=== PATIENT | female | born 1935 | race Caucasian/White ===

== ENCOUNTER 2017-10-05 18:54 | Emergency (ER) | payer MEDICARE, BC ==
[2017-10-05 19:13] VITALS: PULSE 79
[2017-10-05] MEDS ORDERED: DOCUSATE 283 MG/5 ML ENEMA RECTAL STA (20:19)
--- NOTE | 2017-10-05 20:19 | ED ---
Abdominal Pain HPI - General Chief Complaint: Abdominal Pain Stated Complaint: CONSTIPATION, ABDOMINAL PAIN Time Seen by Provider: 10/05/17 19:53 Source: patient, RN notes reviewed Mode of arrival: ambulatory Limitations: no limitations - History of Present Illness Initial Comments: This 81-year-old female presents with complaints of constipation today. She states normally has a regular bowel movement daily she drinks prune juice every day. She states today she was unable to have any bowel movement has some crampy lower abdominal pain. She denies any hematuria dysuria fevers chills nausea vomiting sweats or other symptoms. This has happened in the past. MD Complaint: abdominal pain, other - Related Data Home Medications Medication Instructions Recorded Confirmed Acyclovir [Zovirax] 400 mg PO BID 10/05/17 10/05/17 Atenolol [Tenormin] 50 mg PO DAILY 10/05/17 10/05/17 Levothyroxine Sodium [Synthroid] 100 mcg PO DAILY 10/05/17 10/05/17 Losartan Potassium [Cozaar] 100 mg PO DAILY 10/05/17 10/05/17 Omeprazole 40 mg PO DAILY 10/05/17 10/05/17 amLODIPine [Norvasc] 5 mg PO DAILY 10/05/17 10/05/17 Allergies Allergy/AdvReac Type Severity Reaction Status Date / Time Sulfa (Sulfonamide Allergy Anaphylaxis Verified 10/05/17 19:34 Antibiotics) aspirin AdvReac Chest Pain Verified 10/05/17 19:34 steroids AdvReac Unknown Uncoded 10/05/17 19:14 Review of Systems ROS Statement: Those systems with pertinent positive or pertinent negative responses have been documented in the HPI. ROS Other: All systems not noted in ROS Statement are negative. Past Medical History Past Medical History: Hypertension, Osteoarthritis (OA), Thyroid Disorder History of Any Multi-Drug Resistant Organisms: None Reported Past Surgical History: Cholecystectomy, Hernia Repair, Tonsillectomy Additional Past Surgical History / Comment(s): hemorroidectomy Past Psychological History: Anxiety Smoking Status: Never smoker Past Alcohol Use History: None Reported Past Drug Use History: None Reported General Exam - General Exam Comments Initial Comments: This is a well-developed well-nourished awake alert oriented 3 female Limitations: no limitations General appearance: alert, in no apparent distress Head exam: Present: atraumatic, normocephalic, normal inspection Eye exam: Present: normal appearance, PERRL, EOMI. Absent: scleral icterus, conjunctival injection, periorbital swelling ENT exam: Present: normal exam, mucous membranes moist Neck exam: Present: normal inspection. Absent: tenderness, meningismus, lymphadenopathy Respiratory exam: Present: normal lung sounds bilaterally. Absent: respiratory distress, wheezes, rales, rhonchi, stridor Cardiovascular Exam: Present: regular rate, normal rhythm, normal heart sounds. Absent: systolic murmur, diastolic murmur, rubs, gallop, clicks GI/Abdominal exam: Present: soft, normal bowel sounds, other (Obese abdomen). Absent: distended, tenderness, guarding, rebound, rigid, bruit, pulsatile mass, hernia Rectal exam: Present: deferred Extremities exam: Present: normal inspection, full ROM, normal capillary refill. Absent: tenderness, pedal edema, joint swelling, calf tenderness Back exam: Present: normal inspection Neurological exam: Present: alert, oriented X3, CN II-XII intact Psychiatric exam: Present: normal affect, normal mood Skin exam: Present: warm, dry, intact, normal color. Absent: rash Course Vital Signs 10/05/17 19:09 Temperature 97.8 F Pulse Rate 79 Respiratory 16 Rate Blood Pressure 146/82 O2 Sat by Pulse 96 Oximetry Medical Decision Making - Medical Decision Making The patient is getting some results with the Tech [employer]. After discussion with her she would like to go home she'll be given a bowel citrate of magnesium to take at home. She is a follow-up with her doctor and return when necessary - Radiology Data Radiology results: report reviewed (I did review the imaging and report or is some scattered air-fluid levels in the right lower quadrant consistent with gastroenteritis or ileus. Evidences stool present:.), image reviewed Disposition Clinical Impression: Constipation Disposition: HOME SELF-CARE Condition: Good Instructions: Constipation (ED), High Fiber Diet (ED) Is patient prescribed a controlled substance at d/c from ED?: No Referrals: Kashmir Law MD [Primary Care Provider] - 1-2 days
--- NOTE | 2017-10-05 20:31 | XR ---
EXAMINATION TYPE: XR abdomen 2V DATE OF EXAM: 10/05/2017 COMPARISON: None INDICATION: Pain TECHNIQUE: Single view abdomen upright view and supine view on 2 images. FINDINGS: Air-fluid levels are right lower quadrant. Some colonic bowel gas appears to be present. Mass effect is not identified Psoas margins are normal. No organomegaly is present. Scoliosis present with convexity to left. Vascular calcifications within the aorta. IMPRESSION: 1. Nonspecific abdomen. There are scattered air-fluid levels within the right lower quadrant which ar e nonspecific. Consider gastroenteritis and ileus. Follow-up can be performed as clinically indicated .
[2017-10-05] MEDS ORDERED: MAGNESIUM CITRATE 296 ML BOTTLE PO ONE (20:52)
[2017-10-05 21:28] VITALS: BP 142/67; RESP 18; TEMP 98.4
== END 2017-10-05 21:27 | disposition home or self-care (01) ==
LOC: EC 18:54
DX: K59.00 Constipation, unspecified (principal); I10 Essential (primary) hypertension; E07.9 Disorder of thyroid, unspecified; Z90.49 Acquired absence of other specified parts of digestive tract; Z98.890 Other specified postprocedural states; Z79.899 Other long term (current) drug therapy; Z88.2 Allergy status to sulfonamides; Z88.6 Allergy status to analgesic agent; Z88.8 Allergy status to other drugs, medicaments and biological substances
CPT/HCPCS: 74019; 99284

== ENCOUNTER → 2017-10-27 | Outpatient (CLI) | payer MEDICARE, BC ==
--- NOTE | 2017-10-27 19:18 | CT ---
EXAMINATION TYPE: CT abdomen pelvis wo con DATE OF EXAM: 10/27/2017 COMPARISON: NONE HISTORY: Diarrhea x [address] DLP: 907 mGycm Automated exposure control for dose reduction was used. TECHNIQUE: Helical acquisition of images was performed from the lung bases through the pelvis. FINDINGS: LOWER THORAX: Coronary calcifications. LIVER/GB: No significant abnormality is appreciated. PANCREAS: No significant abnormality is seen. SPLEEN: No significant abnormality is seen. ADRENALS: No significant abnormality is seen. KIDNEYS: No significant abnormality is seen. FREE AIR: No free air is visualized RETROPERITONEAL ADENOPATHY: None visualized REPRODUCTIVE ORGANS: No significant abnormality is seen URINARY BLADDER: Tiny gas bubbles are noted nondependently, presumably due to recent instrumentation . PELVIC ADENOPATHY: None visualized. OSSEOUS STRUCTURES: No significant abnormality is seen. BOWEL: Proximal 25% of the stomach is intrathoracic. The remainder of the stomach and duodenum and s mall bowel are unremarkable. The colon shows scattered diverticula but is otherwise unremarkable no b owel wall thickening or mesocolonic findings. IMPRESSION: NO ACUTE PROCESS, DISCUSSED.
== END | disposition home or self-care (01) ==
LOC: RADCTMAIN 18:29
PROVIDERS: ATTEND Internal Medicine
DX: R19.7 Diarrhea, unspecified (principal)
CPT/HCPCS: 74176

== ENCOUNTER → 2018-02-28 | Outpatient (CLI) | payer MEDICARE, BC ==
--- NOTE | 2018-02-28 10:49 | MM ---
Reason for exam: additional evaluation requested from prior study. Last mammogram was performed 3 years and 1 month ago. History: Patient is postmenopausal. Family history of breast cancer in mother at age 74 and breast cancer in sister at age 70. Lumpectomy. Radiation therapy. Took hormonal contraceptives for 2 years. Physical Findings: Nurse did not find any significant physical abnormalities on exam. MG 3D Diag Mammo W/Cad NINO Bilateral CC and MLO view(s) were taken. Prior study comparison: February 11, 2015, mammogram. There are scattered fibroglandular densities. Stable benign calcifications. Stable post operative changes left breast. No significant new findings when compared with previous films. These results were verbally communicated with the patient and result sheet given to the patient on 02/28/18. ASSESSMENT: Benign, BI-RAD 2 RECOMMENDATION: Follow-up diagnostic mammogram of both breasts in 1 year. Manage patient on a clinical basis.
== END | disposition home or self-care (01) ==
LOC: RADMAMWWP 09:50
PROVIDERS: ATTEND Internal Medicine
DX: Z08 Encounter for follow-up examination after completed treatment for malignant neoplasm (principal); Z85.3 Personal history of malignant neoplasm of breast
CPT/HCPCS: 77066; G0279; 77062

== ENCOUNTER 2018-04-04 13:42 | Emergency (ER) | payer MEDICARE, BC ==
--- NOTE | 2018-04-04 14:11 | ED ---
Chest Pain HPI - General Chief Complaint: Chest Pain Stated Complaint: chest pain Time Seen by Provider: 04/04/18 13:53 Source: patient, RN notes reviewed, old records reviewed Mode of arrival: wheelchair Limitations: no limitations - History of Present Illness Initial Comments: This is an 82-year-old female to the ER for evaluation. She presents today for evaluation regards to chest pain. Patient has left-sided chest pain and episodic for about a week. No change in symptoms currently. Patient is without chest pain currently. States pain is intermittent with no modifying factors. No recent travel history no sick contacts. No prior history of similar complaints no cardiac risk factors MD Complaint: chest pain -: week(s) Onset: during rest, during exertion, after eating Pain Location: left chest Pain Radiation: LUE Severity: mild Severity scale (1-10): 3 Quality: aching Consistency: intermittent, now resolved Improves With: nothing Worsens With: nothing Anginal Symptoms: dyspnea Other Symptoms: cough Treatments Prior to Arrival: none - Related Data Home Medications Medication Instructions Recorded Confirmed Acyclovir [Zovirax] 400 mg PO BID 10/05/17 04/04/18 Atenolol [Tenormin] 50 mg PO DAILY 10/05/17 04/04/18 Levothyroxine Sodium [Synthroid] 100 mcg PO DAILY 10/05/17 04/04/18 Losartan Potassium [Cozaar] 100 mg PO DAILY 10/05/17 04/04/18 Omeprazole 40 mg PO DAILY 10/05/17 04/04/18 amLODIPine [Norvasc] 5 mg PO DAILY 10/05/17 04/04/18 Doxycycline [Vibramycin] 100 mg PO BID 04/04/18 04/04/18 Allergies Allergy/AdvReac Type Severity Reaction Status Date / Time Sulfa (Sulfonamide Allergy Anaphylaxis Verified 04/04/18 14:33 Antibiotics) aspirin AdvReac Chest Pain Verified 04/04/18 14:33 steroids AdvReac Unknown Uncoded 04/04/18 13:49 Review of Systems ROS Statement: Those systems with pertinent positive or pertinent negative responses have been documented in the HPI. ROS Other: All systems not noted in ROS Statement are negative. EKG Findings - EKG Comments: EKG Findings:: EKG shows normal sinus rhythm rate of 80, PA 160, QRS 80, QTC 449 Past Medical History Past Medical History: Hypertension, Osteoarthritis (OA), Thyroid Disorder History of Any Multi-Drug Resistant Organisms: None Reported Past Surgical History: Cholecystectomy, Hernia Repair, Tonsillectomy Additional Past Surgical History / Comment(s): hemorroidectomy Past Psychological History: Anxiety Smoking Status: Never smoker Past Alcohol Use History: None Reported Past Drug Use History: None Reported General Exam Limitations: no limitations General appearance: alert, in no apparent distress Head exam: Present: atraumatic, normocephalic, normal inspection Eye exam: Present: normal appearance, PERRL, EOMI. Absent: scleral icterus, conjunctival injection, periorbital swelling ENT exam: Present: normal exam, mucous membranes moist Neck exam: Present: normal inspection. Absent: tenderness, meningismus, lymphadenopathy Respiratory exam: Present: normal lung sounds bilaterally. Absent: respiratory distress, wheezes, rales, rhonchi, stridor Cardiovascular Exam: Present: regular rate, normal rhythm, normal heart sounds. Absent: systolic murmur, diastolic murmur, rubs, gallop, clicks GI/Abdominal exam: Present: soft, normal bowel sounds. Absent: distended, tenderness, guarding, rebound, rigid Extremities exam: Present: normal inspection, full ROM, normal capillary refill. Absent: tenderness, pedal edema, joint swelling, calf tenderness Back exam: Present: normal inspection Neurological exam: Present: alert, oriented X3, CN II-XII intact Psychiatric exam: Present: normal affect, normal mood Skin exam: Present: warm, dry, intact, normal color. Absent: rash Course Vital Signs 04/04/18 04/04/18 04/04/18 13:46 14:30 15:00 Temperature 97.4 F L Pulse Rate 82 74 73 Respiratory 18 17 24 Rate Blood Pressure 158/75 150/70 128/60 O2 Sat by Pulse 99 99 97 Oximetry 04/04/18 16:56 Temperature 97.3 F L Pulse Rate 70 Respiratory 18 Rate Blood Pressure 133/69 O2 Sat by Pulse 98 Oximetry - Reevaluation(s) Reevaluation #1: Medical record is reviewed Patient's chest pain is negative Patient would like to be discharged home Reevaluation #2: Studies CTA chest is negative for acute disease Chest Pain MDM - MDM 82 female the ER for evaluation, patient does have positive chest pain, CT negative, patient would not like to stay in hospital for cardiac evaluation. Patient will be discharged home Disposition Clinical Impression: Chest pain Disposition: HOME SELF-CARE Condition: Good Instructions: Chest Pain (ED) Is patient prescribed a controlled substance at d/c from ED?: No Referrals: Kashmir Law MD [Primary Care Provider] - 1-2 days
[2018-04-04] MEDS ORDERED: SODIUM CHLORIDE 0.9% 1,000 ML IV STA ×2 (14:32)
[2018-04-04 14:59] LABS: Basophils % (A) 1 %; Eosinophils # (A) 0.3 k/uL (0-0.7); Eosinophils % (A) 8 %; HCT 40.5 % (34.0-46.0); HGB 13.8 gm/dL (11.4-16.0); Lymphocytes # (A) 0.7 k/uL (1.0-4.8); Lymphocytes % (A) 16 %; MCH 27.7 pg (25.0-35.0); MCV 81.6 fL (80.0-100.0); Mean Platelet Volume 7.1; Monocytes # (A) 0.3 k/uL (0-1.0); Monocytes % (A) 6 %; Neutrophils % (A) 67 %; Platelet Count 258 k/uL (150-450); RBC 4.97 m/uL (3.80-5.40); RDW 15.1 % (11.5-15.5); WBC 4.5 k/uL (3.8-10.6)
[2018-04-04 15:09] LABS: Partial Thromboplastin Time 23.2 sec (22.0-30.0)
[2018-04-04 15:11] LABS: Albumin 3.8 g/dL (3.5-5.0); Magnesium 1.9 mg/dL (1.6-2.3); Potassium 4.2 mmol/L (3.5-5.1); Total Bilirubin 0.4 mg/dL (0.2-1.3); Total Protein 6.6 g/dL (6.3-8.2)
[2018-04-04 15:22] LABS: Creatine Kinase 51 U/L (30-135)
[2018-04-04 15:35] LABS: Creatine Kinase MB 1.3 ng/mL (0.0-2.4); Troponin I <0.012 ng/mL (0.000-0.034)
--- NOTE | 2018-04-04 16:16 | CT ---
EXAMINATION TYPE: CT angio chest DATE OF EXAM: 04/04/2018 3:56 PM COMPARISON: HISTORY: Left sided Chst pain CT DLP: 291 mGycm Automated exposure control for dose reduction was used. CONTRAST: CTA scan of the thorax is performed with IV Contrast, patient injected with 80 mL of Isovue 370, pulm onary embolism protocol. . FINDINGS: LUNGS: The lungs are grossly clear, there is no concerning parenchymal mass or nodule identified. T here is no pleural effusion or pneumothorax seen. The tracheobronchial tree is patent. There is basi lar bronchiectasis. There is very mild interlobular septal thickening which can be associated with ch ronic interstitial lung disease. Subsegmental areas of consolidation are seen bilaterally most typica l of atelectasis. Tiny calcified nodule axial image 51 series 401 likely related to tiny granuloma. M easuring 3 mm. MEDIASTINUM: There is a density in the right hilum on axial image 61. This appears to be outside the course of the pulmonary artery on the coronal and sagittal image. There are no greater than 1 cm chapincito r or mediastinal lymph nodes. No pericardial effusion is seen. Heart is enlarged. OTHER: Scoliotic curvature of the spine. Moderate-sized hiatal hernia noted. Vertebral body hemangio ma noted. IMPRESSION: 1. No diagnostic evidence of pulmonary embolism 2. Moderate size hiatal hernia 3. Cardiomegaly
[2018-04-04 16:57] VITALS: BP 133/69; PULSE 70; RESP 18; TEMP 97.3
== END 2018-04-04 17:02 | disposition home or self-care (01) ==
LOC: EC 13:42
DX: R07.9 Chest pain, unspecified (principal); R06.00 Dyspnea, unspecified; R05 Cough; M79.622 Pain in left upper arm; I10 Essential (primary) hypertension; E07.9 Disorder of thyroid, unspecified; Z79.899 Other long term (current) drug therapy; Z88.2 Allergy status to sulfonamides; Z88.6 Allergy status to analgesic agent; Z88.8 Allergy status to other drugs, medicaments and biological substances
CPT/HCPCS: 99285; 36415; 93005; 83880; 80053; 82550; 82553; 83690; 83735; 84484; 85025; 85610; 85730; 71275; Q9967

== ENCOUNTER 2018-04-07 16:56 | Emergency (ER) | payer MEDICARE, BC ==
[2018-04-07] MEDS ORDERED: SODIUM CHLORIDE 0.9% 500 ML 500 ML IV STA (17:47)
[2018-04-07] MEDS ORDERED: ONDANSETRON 4 MG/2 ML VIAL IVP STA (18:08)
[2018-04-07 18:10] LABS: Basophils % (A) 1 %; Eosinophils # (A) 0.3 k/uL (0-0.7); Eosinophils % (A) 4 %; HCT 37.6 % (34.0-46.0); HGB 12.6 gm/dL (11.4-16.0); Lymphocytes % (A) 15 %; MCH 27.3 pg (25.0-35.0); MCHC 33.5 g/dL (31.0-37.0); MCV 81.6 fL (80.0-100.0); Monocytes # (A) 0.5 k/uL (0-1.0); Monocytes % (A) 7 %; Neutrophils # (A) 4.8 k/uL (1.3-7.7); Neutrophils % (A) 70 %; Platelet Count 251 k/uL (150-450); RBC 4.61 m/uL (3.80-5.40); RDW 14.9 % (11.5-15.5); WBC 6.9 k/uL (3.8-10.6)
--- NOTE | 2018-04-07 18:11 | ED ---
General Adult HPI - General Chief complaint: Abdominal Pain Stated complaint: nausea/abdominal pain Source: patient, RN notes reviewed, old records reviewed Mode of arrival: wheelchair Limitations: no limitations - History of Present Illness Initial comments: 82-year-old female patient presents to ED with approximately 14 hours of nausea. Patient has a past medical history of diverticulitis, hypertension. Patient was recently evaluated on 04/04 for chest pain, evaluation was negative. Patient does not have a known history of cardiovascular disease. Patient reports that she has a long history of diverticular disease, denies any surgery within her abdomen. Patient was recently put on antibiotics by her primary care physician approximately one week ago for flareup of her diverticular disease, patient is currently taking doxycycline. Patient states that she woke up at approximately 1 AM this morning with nausea, pressure in her epigastric region. Patient denies any pain in her abdomen. Patient denies any emesis. Patient denies diarrhea. Patient denies fever chills. Patient states that she is not having any chest pain, shortness of breath. Systemic: Pt denies fatigue, myalgia, fever/chills, rash. Pt denies weakness, night sweats, weight loss. Neuro: Pt denies headache, visual disturbances, syncope or pre-syncope. HEENT: Pt denies ocular discharge or irritation, otalgia, rhinorrhea, pharyngitis or notable lymphadenopathy. Cardiopulmonary: Pt denies chest pain, SOB, heart palpitations, dyspnea on exertion. Abdominal/GI: Pt denies abdominal pain, v/d. : Pt denies dysuria, burning w/ urination, frequency/urgency. Denies new onset urinary or bowel incontinence. MSK: Pt denies myalgia, loss of strength or function in extremities. Neuro: Pt denies new onset weakness, paresthesias. - Related Data Home Medications Medication Instructions Recorded Confirmed Acyclovir [Zovirax] 400 mg PO BID 10/05/17 04/07/18 Atenolol [Tenormin] 50 mg PO DAILY 10/05/17 04/07/18 Levothyroxine Sodium [Synthroid] 100 mcg PO DAILY 10/05/17 04/07/18 Losartan Potassium [Cozaar] 100 mg PO DAILY 10/05/17 04/07/18 Omeprazole 40 mg PO DAILY 10/05/17 04/07/18 amLODIPine [Norvasc] 5 mg PO DAILY 10/05/17 04/07/18 Doxycycline [Vibramycin] 100 mg PO BID 04/04/18 04/07/18 Previous Rx's Medication Instructions Recorded Ondansetron [Zofran] 4 mg PO Q12HR PRN #15 tab 04/07/18 Allergies Allergy/AdvReac Type Severity Reaction Status Date / Time Sulfa (Sulfonamide Allergy Anaphylaxis Verified 04/07/18 17:54 Antibiotics) aspirin AdvReac Chest Pain Verified 04/07/18 17:54 steroids AdvReac Unknown Uncoded 04/07/18 17:04 Review of Systems ROS Statement: Those systems with pertinent positive or pertinent negative responses have been documented in the HPI. ROS Other: All systems not noted in ROS Statement are negative. Past Medical History Past Medical History: Hypertension, Osteoarthritis (OA), Thyroid Disorder History of Any Multi-Drug Resistant Organisms: None Reported Past Surgical History: Cholecystectomy, Hernia Repair, Tonsillectomy Additional Past Surgical History / Comment(s): hemorroidectomy Past Psychological History: Anxiety Smoking Status: Never smoker Past Alcohol Use History: None Reported Past Drug Use History: None Reported General Exam - General Exam Comments Initial Comments: Constitutional: NAD, AOX3, Pt has pleasant affect. HEENT: NC/AT, trachea midline, neck supple, no lymphadenopathy. Posterior pharynx non erythematous, without exudates. External ears appear normal, without discharge. Mucous membranes moist. Eyes PERRLA, EOM intact. There is no scleral icterus. No pallor noted. Cardiopulmonary: RRR, no murmurs, rubs or gallops, no JVD noted. Lungs CTAB in anterior and posterior cuevas. No peripheral edema. Abdominal exam: Abdomen soft and non-distended. Abdomen non-tender to palpation in all 4 quadrants. Bowel sounds active in LLQ. No hepatosplenomegaly. No ecchymoses, cullens/healy bowden sign negative. Neuro: CN II-XII intact. No nuchal rigidity. MSK: No posterior calf tenderness bilaterally, homans sign negative bilaterally. Posterior tibialis and radial pulse +2 bilaterally. Limitations: no limitations Course Vital Signs 04/07/18 04/07/18 04/07/18 17:02 18:05 21:20 Temperature 98.2 F 97.8 F 97.4 F L Pulse Rate 72 67 87 Respiratory 16 16 18 Rate Blood Pressure 137/75 135/69 142/67 O2 Sat by Pulse 96 97 98 Oximetry Medical Decision Making - Medical Decision Making 82-year-old female patient presents to ED with approximately 14 hours of nausea. Patient has a past medical history of diverticulitis, hypertension. Patient was recently evaluated on 04/04 for chest pain, evaluation was negative. Patient does not have a known history of cardiovascular disease. Patient reports that she has a long history of diverticular disease, denies any surgery within her abdomen. Patient was recently put on antibiotics by her primary care physician approximately one week ago for flareup of her diverticular disease, patient is currently taking doxycycline. Patient states that she woke up at approximately 1 AM this morning with nausea, pressure in her epigastric region. Patient denies any pain in her abdomen. Patient denies any emesis. Patient denies diarrhea. Patient denies fever chills. Patient states that she is not having any chest pain, shortness of breath. Physical exam did not display acute pathology. CT abdomen and pelvis did not display acute process. This did not display acute process. CMP displayed mild hyponatremia, findings explained to patient, patient to f/u PCP in 1-2 days. CBC was not impressive. Patient improved with Zofran, IV fluids. Lactic acid was negative. Coagulation studies are non-impressive. Troponin was negative. EKG is not concerning for acute ischemia. UA was not impressive. Explained to patient that the nausea experiencing is likely secondary to the doxycycline she was taking. As CBC, chest x-ray, CT abdomen and pelvis suggestive of any acute infectious process, patient okayed to discontinue the doxycycline. Patient verbalized understanding. Patient given strict return precautions. Patient to return to ED if any new symptoms develop including chest pain, shortness breath , abdominal pain, vomiting, diarrhea, any other new symptoms. Case discussed with Dr. Mcdonough. - Lab Data Result diagrams: 04/07/18 17:45 04/07/18 17:45 Lab Results 04/07/18 04/07/18 04/07/18 Range/Units 17:45 17:45 17:45 WBC 6.9 (3.8-10.6) k/uL RBC 4.61 (3.80-5.40) m/uL Hgb 12.6 (11.4-16.0) gm/dL Hct 37.6 (34.0-46.0) % MCV 81.6 (80.0-100.0) fL MCH 27.3 (25.0-35.0) pg MCHC 33.5 (31.0-37.0) g/dL RDW 14.9 (11.5-15.5) % Plt Count 251 (150-450) k/uL Neutrophils % 70 % Lymphocytes % 15 % Monocytes % 7 % Eosinophils % 4 % Basophils % 1 % Neutrophils # 4.8 (1.3-7.7) k/uL Lymphocytes # 1.0 (1.0-4.8) k/uL Monocytes # 0.5 (0-1.0) k/uL Eosinophils # 0.3 (0-0.7) k/uL Basophils # 0.0 (0-0.2) k/uL PT (9.0-12.0) sec INR (<1.2) APTT (22.0-30.0) sec Sodium 129 L (137-145) mmol/L Potassium 4.2 (3.5-5.1) mmol/L Chloride 96 L (98-107) mmol/L Carbon Dioxide 21 L (22-30) mmol/L Anion Gap 12 mmol/L BUN 12 (7-17) mg/dL Creatinine 0.68 (0.52-1.04) mg/dL Est GFR (CKD-EPI)AfAm >90 (>60 ml/min/1.73 sqM) Est GFR (CKD-EPI)NonAf 81 (>60 ml/min/1.73 sqM) Glucose 116 H (74-99) mg/dL Plasma Lactic Acid Abbe 1.0 (0.7-2.0) mmol/L Calcium 8.8 (8.4-10.2) mg/dL Magnesium 2.1 (1.6-2.3) mg/dL Total Bilirubin 0.9 (0.2-1.3) mg/dL AST 20 (14-36) U/L ALT 14 (9-52) U/L Alkaline Phosphatase 76 (38-126) U/L Troponin I (0.000-0.034) ng/mL Total Protein 6.3 (6.3-8.2) g/dL Albumin 3.6 (3.5-5.0) g/dL Lipase 58 (23-300) U/L Urine Color Urine Appearance (Clear) Urine pH (5.0-8.0) Ur Specific [place] (1.001-1.035) Urine Protein (Negative) Urine Glucose (UA) (Negative) Urine Ketones (Negative) Urine Blood (Negative) Urine Nitrite (Negative) Urine Bilirubin (Negative) Urine Urobilinogen (<2.0) mg/dL Ur Leukocyte Esterase (Negative) Urine RBC (0-5) /hpf Urine WBC (0-5) /hpf Ur Squamous Epith Cells (0-4) /hpf Urine Bacteria (None) /hpf Urine Mucus (None) /hpf 04/07/18 04/07/18 04/07/18 Range/Units 17:45 17:45 18:40 WBC (3.8-10.6) k/uL RBC (3.80-5.40) m/uL Hgb (11.4-16.0) gm/dL Hct (34.0-46.0) % MCV (80.0-100.0) fL MCH (25.0-35.0) pg MCHC (31.0-37.0) g/dL RDW (11.5-15.5) % Plt Count (150-450) k/uL Neutrophils % % Lymphocytes % % Monocytes % % Eosinophils % % Basophils % % Neutrophils # (1.3-7.7) k/uL Lymphocytes # (1.0-4.8) k/uL Monocytes # (0-1.0) k/uL Eosinophils # (0-0.7) k/uL Basophils # (0-0.2) k/uL PT 10.0 (9.0-12.0) sec INR 0.9 (<1.2) APTT 24.4 (22.0-30.0) sec Sodium (137-145) mmol/L Potassium (3.5-5.1) mmol/L Chloride (98-107) mmol/L Carbon Dioxide (22-30) mmol/L Anion Gap mmol/L BUN (7-17) mg/dL Creatinine (0.52-1.04) mg/dL Est GFR (CKD-EPI)AfAm (>60 ml/min/1.73 sqM) Est GFR (CKD-EPI)NonAf (>60 ml/min/1.73 sqM) Glucose (74-99) mg/dL Plasma Lactic Acid Abbe (0.7-2.0) mmol/L Calcium (8.4-10.2) mg/dL Magnesium (1.6-2.3) mg/dL Total Bilirubin (0.2-1.3) mg/dL AST (14-36) U/L ALT (9-52) U/L Alkaline Phosphatase (38-126) U/L Troponin I <0.012 (0.000-0.034) ng/mL Total Protein (6.3-8.2) g/dL Albumin (3.5-5.0) g/dL Lipase (23-300) U/L Urine Color Yellow Urine Appearance Clear (Clear) Urine pH 7.5 (5.0-8.0) Ur Specific [place] 1.012 (1.001-1.035) Urine Protein Trace H (Negative) Urine Glucose (UA) Negative (Negative) Urine Ketones Trace H (Negative) Urine Blood Negative (Negative) Urine Nitrite Negative (Negative) Urine Bilirubin Negative (Negative) Urine Urobilinogen <2.0 (<2.0) mg/dL Ur Leukocyte Esterase Trace H (Negative) Urine RBC 1 (0-5) /hpf Urine WBC 5 (0-5) /hpf Ur Squamous Epith Cells 1 (0-4) /hpf Urine Bacteria Occasional H (None) /hpf Urine Mucus Few H (None) /hpf Disposition Clinical Impression: Nausea Disposition: HOME SELF-CARE Condition: Good Instructions: Acute Nausea and Vomiting (ED) Additional Instructions: Patient to adhere to previously discussed treatment plan and will take medication(s) as directed. Patient to follow up with PCP in 1-2 days. Patient to return to ED if symptoms do not improve. Prescriptions: Ondansetron [Zofran] 4 mg PO Q12HR PRN #15 tab PRN Reason: Nausea Is patient prescribed a controlled substance at d/c from ED?: No Referrals: Kashmir Law MD [Primary Care Provider] - 1-2 days Time of Disposition: 21:14
[2018-04-07 18:21] LABS: INR 0.9 (<1.2); Partial Thromboplastin Time 24.4 sec (22.0-30.0)
[2018-04-07 18:25] LABS: ALT 14 U/L (9-52); AST 20 U/L (14-36); Albumin 3.6 g/dL (3.5-5.0); Alkaline Phosphatase 76 U/L (38-126); Anion Gap 12 mmol/L; Blood Urea Nitrogen 12 mg/dL (7-17); Calcium 8.8 mg/dL (8.4-10.2); Carbon Dioxide 21 mmol/L (22-30); Chloride 96 mmol/L (98-107); Glucose 116 mg/dL (74-99); Lipase 58 U/L (23-300); Magnesium 2.1 mg/dL (1.6-2.3); Potassium 4.2 mmol/L (3.5-5.1); Sodium 129 mmol/L (137-145); Total Bilirubin 0.9 mg/dL (0.2-1.3); Total Protein 6.3 g/dL (6.3-8.2)
[2018-04-07 19:00] LABS: Appearance,Urine Clear (Clear); Bacteria,Urine Occasional /hpf; Bilirubin,Urine Negative (Negative); Blood,Urine Negative (Negative); Color,Urine Yellow; Glucose,Urine (UA) Negative (Negative); Ketones,Urine Trace (Negative); Leukocyte Esterase,Urine Trace (Negative); Mucus,Urine Few /hpf; Nitrite,Urine Negative (Negative); PH, Urine 7.5 (5.0-8.0); Protein,Urine Trace (Negative); RBC,Urine 1 /hpf (0-5); Specific Gravity,Urine 1.012 (1.001-1.035); Squamous Epithelial Cell,Urine 1 /hpf (0-4); Urobilinogen,Urine <2.0 mg/dL (<2.0)
--- NOTE | 2018-04-07 19:50 | CT ---
EXAMINATION TYPE: CT abdomen pelvis w con DATE OF EXAM: 04/07/2018 COMPARISON: 10/27/2017 HISTORY: Abdominal pain and nausea CT DLP: 797.8 mGycm Automated exposure control for dose reduction was used. TECHNIQUE: Helical acquisition of images was performed from the lung bases through the pelvis. CONTRAST: Performed without Oral Contrast and with IV Contrast, patient injected with 100 mL of Isovue 300. FINDINGS: LUNG BASES: No significant abnormality is appreciated. LIVER/GB: No significant abnormality is appreciated. PANCREAS: No significant abnormality is seen. SPLEEN: No significant abnormality is seen. ADRENALS: No significant abnormality is seen. KIDNEYS: No significant abnormality is seen. FREE AIR: No free air is visualized. RETROPERITONEAL ADENOPATHY: None visualized REPRODUCTIVE ORGANS: No significant abnormality is seen URINARY BLADDER: No significant abnormality is seen. PELVIC ADENOPATHY: None visualized. OSSEOUS STRUCTURES: No significant abnormality is seen. BOWEL: No significant abnormality is seen. Again, the proximal 25% of the stomach is intrathoracic i n position. OTHER: No acute vascular findings. IMPRESSION: NO ACUTE PROCESS.
--- NOTE | 2018-04-07 21:06 | XR ---
EXAMINATION: XR chest 2V DATE AND TIME: 04/07/2018 8:21 PM CLINICAL INDICATION: PHH; Pain TECHNIQUE: Departmental protocol COMPARISON: None FINDINGS: The lungs are clear. The pleural spaces are negative. The cardiac silhouette is mild moderately enlarged. The skeletal structures and soft tissues are negative for acute findings. IMPRESSION: NO ACUTE PROCESS.
[2018-04-07 21:46] VITALS: BP 142/67; PULSE 87; RESP 18; TEMP 97.4
== END 2018-04-07 21:46 | disposition home or self-care (01) ==
LOC: EC 16:56
DX: R11.0 Nausea (principal); I10 Essential (primary) hypertension; E07.9 Disorder of thyroid, unspecified; F41.9 Anxiety disorder, unspecified; Z79.899 Other long term (current) drug therapy; Z88.2 Allergy status to sulfonamides; Z88.6 Allergy status to analgesic agent; Z88.8 Allergy status to other drugs, medicaments and biological substances; Z90.49 Acquired absence of other specified parts of digestive tract
CPT/HCPCS: 36415; 93005; 80053; 83605; 83690; 83735; 84484; 85025; 85610; 85730; 81001; 71046; 74177; 99285; 96374; 96361 ×3; J2405; Q9967

== ENCOUNTER 2018-07-25 10:04 | Observation (INO) | payer MEDICARE, BC ==
[2018-07-25] MEDS ORDERED: NITROGLYCERIN OINT 1 INCH/GM PACKET TOPICAL STA (10:34)
[2018-07-25] MEDS ORDERED: SODIUM CHLORIDE 0.9% 1,000 ML IV STA (10:34)
--- NOTE | 2018-07-25 10:37 | ED ---
General Adult HPI - General Chief complaint: Chest Pain Stated complaint: shooting pain in chest Time Seen by Provider: 07/25/18 10:27 Source: patient, RN notes reviewed Mode of arrival: wheelchair Limitations: no limitations - History of Present Illness Initial comments: Patient is a pleasant 82-year-old female presenting to the emergency Department with complaints of chest discomfort. Onset of symptoms was yesterday, symptoms were worse this morning. Discomfort is intermittent. Discomfort is sharp. Discomfort starts under the left arm and radiates towards the left breast. Patient has associated nausea. No dyspnea. No diaphoresis. No history of similar symptoms previously. Currently patient is symptom-free. Symptoms have been intermittent and generally short lasting. - Related Data Home Medications Medication Instructions Recorded Confirmed Acyclovir [Zovirax] 400 mg PO BID 10/05/17 07/25/18 Atenolol [Tenormin] 50 mg PO DAILY 10/05/17 07/25/18 Levothyroxine Sodium [Synthroid] 100 mcg PO DAILY 10/05/17 07/25/18 Losartan Potassium [Cozaar] 100 mg PO DAILY 10/05/17 07/25/18 Omeprazole 40 mg PO DAILY@1200 10/05/17 07/25/18 amLODIPine [Norvasc] 5 mg PO DAILY 10/05/17 07/25/18 Allergies Allergy/AdvReac Type Severity Reaction Status Date / Time Sulfa (Sulfonamide Allergy Anaphylaxis Verified 07/25/18 10:53 Antibiotics) aspirin AdvReac Chest Pain Verified 07/25/18 10:53 steroids AdvReac Unknown Uncoded 07/25/18 10:17 Review of Systems ROS Statement: Those systems with pertinent positive or pertinent negative responses have been documented in the HPI. ROS Other: All systems not noted in ROS Statement are negative. Constitutional: Denies: fever Eyes: Denies: eye pain ENT: Denies: ear pain Respiratory: Denies: cough, dyspnea Cardiovascular: Reports: chest pain Endocrine: Denies: fatigue Gastrointestinal: Reports: nausea. Denies: abdominal pain Genitourinary: Denies: dysuria Musculoskeletal: Denies: back pain Skin: Denies: rash Neurological: Denies: weakness Past Medical History Past Medical History: Hypertension, Osteoarthritis (OA), Thyroid Disorder History of Any Multi-Drug Resistant Organisms: None Reported Past Surgical History: Cholecystectomy, Hernia Repair, Tonsillectomy Additional Past Surgical History / Comment(s): hemorroidectomy Past Psychological History: Anxiety Smoking Status: Never smoker Past Alcohol Use History: None Reported Past Drug Use History: None Reported General Exam Limitations: no limitations General appearance: alert, in no apparent distress Head exam: Present: atraumatic Eye exam: Present: normal appearance, PERRL ENT exam: Present: normal oropharynx Neck exam: Present: normal inspection Respiratory exam: Present: normal lung sounds bilaterally. Absent: chest wall tenderness Cardiovascular Exam: Present: regular rate, normal rhythm Expanded Peripheral pulses: 2+: Radial (R), Radial (L), Dorsalis Pedis (R), Dorsalis Pedis (L) GI/Abdominal exam: Present: soft. Absent: distended, tenderness, guarding, rebound, rigid, pulsatile mass Extremities exam: Present: normal inspection. Absent: pedal edema, calf tenderness Neurological exam: Present: alert Psychiatric exam: Present: normal affect, normal mood Skin exam: Present: normal color Course Vital Signs 07/25/18 07/25/18 10:14 12:05 Temperature 97.8 F 97.8 F Pulse Rate 65 87 Respiratory 18 18 Rate Blood Pressure 154/72 157/79 O2 Sat by Pulse 98 100 Oximetry EKG Findings - EKG Comments: EKG Findings:: Normal sinus rhythm at 70. DC 170. QRS 92. QT 426. QTc 460. Normal axis. Normal QRS. No acute ST change. Medical Decision Making - Medical Decision Making Patient reevaluated and resting comfortably in bed. Patient and family updated on results and plan. Case was discussed with Dr. Barnes, who will admit covering for Dr. Upton. - Lab Data Result diagrams: 07/25/18 10:57 07/25/18 10:57 Lab Results 07/25/18 07/25/18 07/25/18 Range/Units 10:57 10:57 10:57 WBC 4.4 (3.8-10.6) k/uL RBC 5.12 (3.80-5.40) m/uL Hgb 13.8 (11.4-16.0) gm/dL Hct 41.1 (34.0-46.0) % MCV 80.3 (80.0-100.0) fL MCH 26.9 (25.0-35.0) pg MCHC 33.5 (31.0-37.0) g/dL RDW 15.6 H (11.5-15.5) % Plt Count 290 (150-450) k/uL Neutrophils % 59 % Lymphocytes % 26 % Monocytes % 7 % Eosinophils % 5 % Basophils % 1 % Neutrophils # 2.6 (1.3-7.7) k/uL Lymphocytes # 1.1 (1.0-4.8) k/uL Monocytes # 0.3 (0-1.0) k/uL Eosinophils # 0.2 (0-0.7) k/uL Basophils # 0.0 (0-0.2) k/uL PT 10.0 (9.0-12.0) sec INR 0.9 (<1.2) APTT 23.3 (22.0-30.0) sec D-Dimer 0.71 H (<0.60) mg/L FEU Sodium 135 L (137-145) mmol/L Potassium 4.3 (3.5-5.1) mmol/L Chloride 102 (98-107) mmol/L Carbon Dioxide 25 (22-30) mmol/L Anion Gap 8 mmol/L BUN 12 (7-17) mg/dL Creatinine 0.73 (0.52-1.04) mg/dL Est GFR (CKD-EPI)AfAm 88 (>60 ml/min/1.73 sqM) Est GFR (CKD-EPI)NonAf 76 (>60 ml/min/1.73 sqM) Glucose 100 H (74-99) mg/dL Calcium 9.1 (8.4-10.2) mg/dL Magnesium 2.0 (1.6-2.3) mg/dL Total Bilirubin 0.6 (0.2-1.3) mg/dL AST 18 (14-36) U/L ALT 14 (9-52) U/L Alkaline Phosphatase 82 (38-126) U/L Troponin I (0.000-0.034) ng/mL Total Protein 6.6 (6.3-8.2) g/dL Albumin 3.9 (3.5-5.0) g/dL Amylase 45 (30-110) U/L Lipase 132 (23-300) U/L 07/25/18 Range/Units 10:57 WBC (3.8-10.6) k/uL RBC (3.80-5.40) m/uL Hgb (11.4-16.0) gm/dL Hct (34.0-46.0) % MCV (80.0-100.0) fL MCH (25.0-35.0) pg MCHC (31.0-37.0) g/dL RDW (11.5-15.5) % Plt Count (150-450) k/uL Neutrophils % % Lymphocytes % % Monocytes % % Eosinophils % % Basophils % % Neutrophils # (1.3-7.7) k/uL Lymphocytes # (1.0-4.8) k/uL Monocytes # (0-1.0) k/uL Eosinophils # (0-0.7) k/uL Basophils # (0-0.2) k/uL PT (9.0-12.0) sec INR (<1.2) APTT (22.0-30.0) sec D-Dimer (<0.60) mg/L FEU Sodium (137-145) mmol/L Potassium (3.5-5.1) mmol/L Chloride (98-107) mmol/L Carbon Dioxide (22-30) mmol/L Anion Gap mmol/L BUN (7-17) mg/dL Creatinine (0.52-1.04) mg/dL Est GFR (CKD-EPI)AfAm (>60 ml/min/1.73 sqM) Est GFR (CKD-EPI)NonAf (>60 ml/min/1.73 sqM) Glucose (74-99) mg/dL Calcium (8.4-10.2) mg/dL Magnesium (1.6-2.3) mg/dL Total Bilirubin (0.2-1.3) mg/dL AST (14-36) U/L ALT (9-52) U/L Alkaline Phosphatase (38-126) U/L Troponin I <0.012 (0.000-0.034) ng/mL Total Protein (6.3-8.2) g/dL Albumin (3.5-5.0) g/dL Amylase (30-110) U/L Lipase (23-300) U/L - Radiology Data Radiology results: image reviewed (Chest x-ray shows no acute process) Disposition Clinical Impression: Chest pain Disposition: ADMITTED IP TO THIS [facility] Referrals: Kashmir Law MD [Primary Care Provider] - 1-2 days Decision Time: 12:49
[2018-07-25 11:19] LABS: Basophils % (A) 1 %; Eosinophils # (A) 0.2 k/uL (0-0.7); Eosinophils % (A) 5 %; HCT 41.1 % (34.0-46.0); HGB 13.8 gm/dL (11.4-16.0); Lymphocytes # (A) 1.1 k/uL (1.0-4.8); Lymphocytes % (A) 26 %; MCH 26.9 pg (25.0-35.0); MCHC 33.5 g/dL (31.0-37.0); MCV 80.3 fL (80.0-100.0); Mean Platelet Volume 7.5; Monocytes # (A) 0.3 k/uL (0-1.0); Monocytes % (A) 7 %; Neutrophils # (A) 2.6 k/uL (1.3-7.7); Neutrophils % (A) 59 %; Platelet Count 290 k/uL (150-450); RBC 5.12 m/uL (3.80-5.40); RDW 15.6 % (11.5-15.5); WBC 4.4 k/uL (3.8-10.6)
--- NOTE | 2018-07-25 11:28 | XR ---
EXAMINATION TYPE: XR chest 2V DATE OF EXAM: 07/25/2018 COMPARISON: 04/07/2018 INDICATION: Chest pain TECHNIQUE: Frontal and lateral views of the chest are obtained. FINDINGS: The heart size is normal. The pulmonary vasculature is normal. The lungs are clear. IMPRESSION: 1. No acute pulmonary process.
[2018-07-25 11:36] LABS: Albumin 3.9 g/dL (3.5-5.0); Calcium 9.1 mg/dL (8.4-10.2); Potassium 4.3 mmol/L (3.5-5.1); Total Bilirubin 0.6 mg/dL (0.2-1.3); Total Protein 6.6 g/dL (6.3-8.2)
[2018-07-25 11:56] LABS: INR 0.9 (<1.2); Partial Thromboplastin Time 23.3 sec (22.0-30.0)
[2018-07-25 12:08] LABS: D-Dimer 0.71 mg/L FEU (<0.60)
[2018-07-25] MEDS ORDERED: NITROGLYCERIN SL TABS 0.4 MG TAB SUBLINGUAL PRN (12:50)
--- NOTE | 2018-07-25 14:27 | CT ---
EXAMINATION TYPE: CT angio chest DATE OF EXAM: 07/25/2018 2:16 PM COMPARISON: 04/04/2018 HISTORY: Left sided chest pain. CT DLP: 291.6 mGycm Automated exposure control for dose reduction was used. CONTRAST: CTA scan of the thorax is performed with IV Contrast, patient injected with 74 mL of Isovue 370, pulm onary embolism protocol. . FINDINGS: LUNGS: The lungs are grossly clear, there is no concerning parenchymal mass or nodule identified. The re is no pleural effusion or pneumothorax seen. The tracheobronchial tree is patent. There is basilar bronchiectasis. There is very mild interlobular septal thickening which can be associated with chron ic interstitial lung disease. Subsegmental areas of consolidation are seen bilaterally most typical o f atelectasis. Apical subpleural nodularity measuring less than 5 mm stable. Calcified nodule previou sly noted suggestive of granuloma stable. Subsegmental consolidation bilaterally most typical of atel ectasis. MEDIASTINUM: There is satisfactory enhancement of the pulmonary artery and its branches, there is no CT evidence for pulmonary embolism. There are no greater than 1 cm hilar or mediastinal lymph nodes. No pericardial effusion is seen. Atherosclerotic changes of the aorta and branch vasculature. Incl uding the splenic artery mild coronary artery calcification. Heart is enlarged. OTHER: Scoliotic curvature of the spine with multilevel degenerative changes. Moderate-sized hiatal hernia noted. Vertebral body hemangioma noted. Correlate for previous cholecystectomy. Hypertrophy of the adrenal glands likely in the basis of adrenal hyperplasia. IMPRESSION: 1. No diagnostic evidence of pulmonary embolism 2. Moderate size hiatal hernia 3. Cardiomegaly WITH MILD CORONARY ARTERY ATHEROSCLEROTIC CHANGES
[2018-07-25 15:21] VITALS: BMI 27.6
[2018-07-25] MEDS: NITROGLYCERIN OINT 1 INCH/GM PACKET TOPICAL SCH ×2 (17:06→23:56)
[2018-07-25] MEDS ORDERED: PANTOPRAZOLE 40 MG TABLET PO ONE (17:30)
[2018-07-25] MEDS: ACYCLOVIR 200 MG CAP PO SCH (20:52)
[2018-07-25] MEDS ORDERED: CLOPIDOGREL 75 MG TAB PO SCH (23:45)
--- NOTE | 2018-07-26 00:43 | HP ---
HISTORY AND PHYSICAL DATE OF SERVICE: 07/25/2018. PRESENTING COMPLAINT: Cough, chest pain. HISTORY OF PRESENTING COMPLAINT: This is a pleasant 82-year-old patient who follows with Dr. Kashmir Law. Chronic stable medical conditions include GERD, hypertension, osteoarthritis including the back, hypothyroid, hiatal hernia, anxiety. Did have breast cancer treated with radiation treatment. For 2 days patient has been having some left-sided chest pain off and on. Also, sometimes in the left armpit and sometimes this pain lasts for a few seconds. She describes it as an ache. No associated dizziness, short of breath, lightheadedness or perspiration. The patient is able to do her chores. Patient normally does use a cane to get about. The patient's last stress test was done about 2 years ago. She was admitted to rule out a cardiac cause because of her presentation. REVIEW OF SYSTEMS: CONSTITUTIONAL: None. HEENT: None. RESPIRATORY: None. CARDIOVASCULAR: As above. GASTROINTESTINAL: None. GENITOURINARY: None. MUSCULOSKELETAL: Arthritic pain in many joints including lower back. DERMATOLOGICAL, HEMATOLOGIC, LYMPHATIC: None. PSYCHIATRY: Anxiety. NEUROLOGICAL: None. PAST MEDICAL HISTORY: GERD, hypertension, osteoarthritis especially of lower back, hypothyroid, hiatal hernia, breast cancer due to radiation treatment, anxiety. PAST SURGICAL HISTORY: Cholecystectomy, hernia repair, tonsillectomy, hemorrhoidectomy. PSYCH HISTORY: History of anxiety. SOCIAL HISTORY: Does not smoke or drink alcohol. . Uses a cane. FAMILY HISTORY: Breast cancer. HOME MEDICATIONS: 1. Norvasc 5 mg p.o. daily. 2. Omeprazole 40 mg p.o. daily. 3. Cozaar 100 mg p.o. daily. 4. Synthroid 100 mcg p.o. daily. 5. Tenormin 50 mg p.o. daily. 6. Lovenox 100 mg p.o. b.i.d. ALLERGIES: SULFA, ASPIRIN, STEROIDS. PHYSICAL EXAMINATION: Vital signs on presentation, temperature 97.8, pulse 55, respiratory rate 18, blood pressure 150/72, pulse 98% on room air. GENERAL APPEARANCE: Average built, sitting up comfortable. EYES: Pupils equal. Conjunctivae normal. HEENT: External ears and nose normal. Oral cavity normal. NECK: JVD not raised. Mass not palpable. Respiratory effort normal. LUNGS: Clear. CARDIOVASCULAR: 1st and 2nd heart sounds normal. No edema. ABDOMEN: Soft, nontender. Liver and spleen not palpable. LYMPHATIC: No lymph nodes palpable in the neck or axillae. PSYCHIATRY: Alert and oriented x3. Mood and affect normal. NEUROLOGICAL: Pupils equal. Cranial nerves grossly intact. Power and sensation grossly intact. INVESTIGATIONS: Reviewed in the clinical context. White count 4.4, hemoglobin 13.8, platelets 290,000. Potassium 4.3. BUN and creatinine normal. Troponin x2 negative. EKG tracing personally reviewed by me shows normal sinus rhythm. Chest x-ray film personally reviewed by me shows normal sinus rhythm, some cardiomegaly. Chest CTA shows some scoliosis, multilevel DJD, moderate-sized hiatal hernia. ASSESSMENT: 1. Noncardiac sounding chest pain. The patient's cardiac risk factors include patient's age, hypertension. Stress test was negative 2 years ago. It could also be musculoskeletal, but need to rule out underlying cardiac cause given her age. 2. Gastroesophageal reflux disease. 3. Essential hypertension. 4. Primary osteoarthritis multiple joints. 5. Hypothyroid. 6. Hiatal hernia. 7. Anxiety not otherwise specified. 8. Moderate hiatal hernia. PLAN: Patient has nitroglycerin paste in place. The patient is allergic to aspirin and steroids. Will add Plavix. Cardiology was consulted. The patient will need a stress test. Care was discussed with the patient. Questions were answered. ALLAL / IJN: [id number] /
[2018-07-26 01:58] LABS: Cholesterol 264 mg/dL (<200); HDL Cholesterol 46 mg/dL (40-60); LDL Cholesterol,Calculated 172 mg/dL (0-99); Triglycerides 232 mg/dL (<150)
[2018-07-26] MEDS: NITROGLYCERIN OINT 1 INCH/GM PACKET TOPICAL SCH (05:51)
[2018-07-26] MEDS ORDERED: LEVOTHYROXINE 100 MCG TAB PO SCH (06:30)
[2018-07-26 08:20] VITALS: RESP 18
[2018-07-26] MEDS: ACYCLOVIR 200 MG CAP PO SCH (08:49)
[2018-07-26] MEDS ORDERED: amLODIPine 5 MG TAB PO SCH (09:00)
[2018-07-26] MEDS ORDERED: ATENOLOL 50 MG TAB PO SCH (09:00)
[2018-07-26] MEDS ORDERED: LOSARTAN 50 MG TAB PO SCH (09:00)
[2018-07-26] MEDS ORDERED: DOBUTamine DRIP for NUC MED 500 MG in DEXTROSE/WATER 1 250ML.BAG IV ONE (10:03)
--- NOTE | 2018-07-26 10:16 | P.CRDCN ---
History of Present Illness History of present illness: This is a pleasant 82-year-old female past medical history significant for hypertension, hypothyroidism, osteoarthritis, gastroesophageal reflux disease and prior history of breast cancer status post lumpectomy and radiation in 2008. She denies history of coronary artery disease, diabetes mellitus and states she has been told she has dyslipidemia in the past but is intolerant to simvastatin due to muscle aches. We have been asked to see her in consultation secondary to chest pain. She states intermittently since Wednesday she has been having a brief sharp pain in the left precordial region with radiation to the axillary region. This comes at rest and is not associated with any other symptoms. There is no radiation down the arm, into the back or neck/jaw. The sy mptoms are very brief when they comes but are intense. Yesterday she noticed this again while she was getting dressed and for this reason and because associated with activity she came to the hospital for further evaluation. She had no further symptoms of chest discomfort since arrival to the hospital. She is seen and examined resting comfortably in bed with her at the bedside. EKG reveals sinus mechanism with no acute ST or T wave abnormalities noted. Chest x-ray is negative for an acute cardiopulmonary process. CTA chest negative for pulmonary embolism with evidence of mild coronary calcifications. Laboratory data reviewed, cardiac enzymes negative 3, WBC 4.4, hemoglobin 13.8, platelets 290, d-dimer 0.71, sodium 135, potassium 4.3, creatinine 0.73, magnesium 2.0, LDL 172, HDL 46. Current cardiac medications include amlodipine 5 mg daily, losartan 100 mg daily and atenolol 50 mg daily. She states she underwent stress testing approximately 2 years ago [facility] and she states was negative. At the time of my exam: CONSTITUTIONAL: Denies fever. Denies chills. EYES: Denies blurred vision. Denies vision changes. Denies eye pain. EARS, NOSE, MOUTH & THROAT: Denies headache. Denies sore throat. Denies ear pain. CARDIOVASCULAR: Denies chest pain. Denies shortness of breath. Denies orthopnea. Denies PND. Denies palpitations. RESPIRATORY: Denies cough. GASTROINTESTINAL: Denies abdominal pain. Denies diarrhea. Denies constipation. Denies nausea. Denies vomiting. MUSCULOSKELETAL: Denies myalgias. INTEGUMENTARY: Denies pruitis. Denies rash. NEUROLOGIC: Denies numbness. Denies tingling. Denies weakness. PSYCHIATRIC: Denies anxiety. Denies depression. ENDOCRINE: Denies fatigue. Denies weight change. Denies polydipsia. Denies polyurina. GENITOURINARY: Denies burning, hematuria or urgency with micturation. HEMATOLOGIC: Denies history of anemia. Denies bleeding. Blood pressure 136/78 heart rate 60 afebrile maintaining oxygen saturation on room air GENERAL: This is a 82-year-old female in no apparent distress at the time of my examination. HEENT: Head is atraumatic, normocephalic. Pupils are equal, round. Sclerae anicteric. Conjunctivae are clear. Mucous membranes of the mouth are moist. Neck is supple. There is no jugular venous distention. No carotid bruit is heard. LUNGS: Clear to auscultation no wheezes, rales or rhonchi. No chest wall tenderness is noted on palpation or with deep breathing. HEART: Regular rate and rhythm without murmurs, rubs or gallops. S1 and S2 heard. ABDOMEN: Soft, nontender. Bowel sounds are heard. No organomegaly noted. EXTREMITIES: No evidence of peripheral edema and no calf tenderness noted. VASCULAR: Radial and dorsalis pedis pulses palpated, no evidence of clubbing. NEUROLOGIC: Patient is awake, alert and oriented x3. ASSESSMENT Chest pain, atypical for angina. An acute coronary event has been ruled out with no EKG evidence of ischemia and negative cardiac enzymes. Underlying CAD is likely due to the patient's age and risk factors however these symptoms are not suggestive of unstable angina. Hypertension Dyslipidemia Hypothyroidism PLAN An acute coronary event is ruled out. Obtain 2-D echocardiogram and Doppler study to assess cardiac structure and function. Perform dobutamine stress echocardiogram to assess for stress-induced cardiac ischemia. Recommend initiation of rosuvastatin 10 mg daily, patient is agreeable to attempt this medication. Prescription has been sent her pharmacy. Continue losartan, atenolol and amlodipine as previously ordered. If above diagnostic testing is normal she is stable to be discharged from a cardiac perspective. Follow up with Dr. Trinidad in 2 weeks. Thank you kindly for this consultation. Nurse Practitioner note has been reviewed, I agree with a documented findings and plan of care. Patient was seen and examined. Past Medical History Past Medical History: Cancer, Chest Pain / Angina, GERD/Reflux, Hypertension, Osteoarthritis (OA), Thyroid Disorder Additional Past Medical History / Comment(s): Breast cancer with lumpectomy and radiation 2008, hiatel hernia History of Any Multi-Drug Resistant Organisms: None Reported Past Surgical History: Cholecystectomy, Hernia Repair, Tonsillectomy Additional Past Surgical History / Comment(s): hemorroidectomy Past Anesthesia/Blood Transfusion Reactions: No Reported Reaction Past Psychological History: Anxiety Smoking Status: Never smoker Past Alcohol Use History: None Reported Past Drug Use History: None Reported - Past Family History Mother Family Medical History: Cancer Additional Family Medical History / Comment(s): Breast cancer Father Family Medical History: Cancer Additional Family Medical History / Comment(s): Lung and throat Medications and Allergies Home Medications Medication Instructions Recorded Confirmed Type Acyclovir [Zovirax] 400 mg PO BID 10/05/17 07/25/18 History Atenolol [Tenormin] 50 mg PO DAILY 10/05/17 07/25/18 History Levothyroxine Sodium [Synthroid] 100 mcg PO DAILY 10/05/17 07/25/18 History Losartan Potassium [Cozaar] 100 mg PO DAILY 10/05/17 07/25/18 History Omeprazole 40 mg PO DAILY@1200 10/05/17 07/25/18 History amLODIPine [Norvasc] 5 mg PO DAILY 10/05/17 07/25/18 History Allergies Allergy/AdvReac Type Severity Reaction Status Date / Time Sulfa (Sulfonamide Allergy Anaphylaxis Verified 07/25/18 10:53 Antibiotics) aspirin AdvReac Chest Pain Verified 07/25/18 10:53 steroids AdvReac Unknown Uncoded 07/25/18 10:17 Physical Exam Vitals: Vital Signs Temp Pulse Pulse Resp BP BP Pulse Ox 07/26/18 04:00 97.5 F L 66 16 136/79 97 07/26/18 03:13 16 07/26/18 00:00 16 07/25/18 23:34 97.9 F 60 16 120/71 99 07/25/18 20:00 97.3 F L 68 16 145/74 97 07/25/18 15:13 97.8 F 64 18 168/74 98 07/25/18 14:30 98.3 F 63 16 152/72 96 07/25/18 13:30 61 16 141/69 99 07/25/18 12:05 97.8 F 87 18 157/79 100 07/25/18 10:14 97.8 F 65 18 154/72 98 Intake and Output 07/25/18 07/26/18 07/26/18 22:59 06:59 14:59 Intake Total 240 Balance 240 Intake: Oral 240 Other: Voiding Method Toilet Toilet # Voids 1 1 Results 07/25/18 10:57 07/25/18 10:57 Cardiac Enzymes 07/25/18 07/25/18 07/25/18 Range/Units 10:57 10:57 17:45 AST 18 (14-36) U/L Troponin I <0.012 <0.012 (0.000-0.034) ng/mL 07/25/18 Range/Units 23:21 AST (14-36) U/L Troponin I <0.012 (0.000-0.034) ng/mL Coagulation 07/25/18 Range/Units 10:57 PT 10.0 (9.0-12.0) sec APTT 23.3 (22.0-30.0) sec Lipids 07/25/18 Range/Units 10:57 Triglycerides 232 H (<150) mg/dL Cholesterol 264 H (<200) mg/dL HDL Cholesterol 46 (40-60) mg/dL CBC 07/25/18 Range/Units 10:57 WBC 4.4 (3.8-10.6) k/uL RBC 5.12 (3.80-5.40) m/uL Hgb 13.8 (11.4-16.0) gm/dL Hct 41.1 (34.0-46.0) % Plt Count 290 (150-450) k/uL Comprehensive Metabolic Panel 07/25/18 Range/Units 10:57 Sodium 135 L (137-145) mmol/L Potassium 4.3 (3.5-5.1) mmol/L Chloride 102 (98-107) mmol/L Carbon Dioxide 25 (22-30) mmol/L BUN 12 (7-17) mg/dL Creatinine 0.73 (0.52-1.04) mg/dL Glucose 100 H (74-99) mg/dL Calcium 9.1 (8.4-10.2) mg/dL AST 18 (14-36) U/L ALT 14 (9-52) U/L Alkaline Phosphatase 82 (38-126) U/L Total Protein 6.6 (6.3-8.2) g/dL Albumin 3.9 (3.5-5.0) g/dL Current Medications Generic Name Dose Route Start Last Admin Trade Name Freq PRN Reason Stop Dose Admin Acyclovir 400 mg 07/25/18 21:00 07/25/18 20:52 Zovirax PO 400 mg BID CAMELIA Administration Amlodipine Besylate 5 mg 07/26/18 09:00 Norvasc PO DAILY CAMELIA Atenolol 50 mg 07/26/18 09:00 Tenormin PO DAILY [facility] Levothyroxine Sodium 100 mcg 07/26/18 06:30 07/26/18 06:01 Synthroid PO 100 mcg DAILY@0630 [facility] Administration Losartan Potassium 100 mg 07/26/18 09:00 Cozaar PO DAILY [facility] Nitroglycerin 0.4 mg 07/25/18 12:50 Nitrostat SUBLINGUAL Q5M PRN Chest Pain Pantoprazole Sodium 40 mg 07/26/18 12:00 Protonix PO DAILY@1200 [facility] Sodium Chloride 10 ml 07/25/18 21:00 07/25/18 20:52 Saline Flush IV 10 ml BID [facility] Administration Intake and Output 07/25/18 07/26/18 07/26/18 22:59 06:59 14:59 Intake Total 240 Balance 240 Intake: Oral 240 Other: Voiding Method Toilet Toilet # Voids 1 1 07/25/18 10:57 07/25/18 10:57
--- NOTE | 2018-07-26 11:33 | ECHOF ---
Referral Reason:cp MEASUREMENTS -------- HEIGHT: 154.9 cm WEIGHT: 65.8 kg BP: 136/79 RVIDd: 2.8 cm (< 3.3) IVSd: 1.3 cm (0.6 - 1.1) LVIDd: 4.2 cm (3.9 - 5.3) LVPWd: 1.2 cm (0.6 - 1.1) IVSs: 1.4 cm LVIDs: 2.9 cm LVPWs: 1.5 cm LA Diam: 3.2 cm (2.7 - 3.8) LAESV Index (A-L): 35.22 ml/m Ao Diam: 3.3 cm (2.0 - 3.7) AV Cusp: 2.1 cm (1.5 - 2.6) MV EXCURSION: 13.254 mm (> 18.000) MV EF SLOPE: 71 mm/s (70 - 150) EPSS: 0.2 cm MV E Luis: 1.05 m/s MV DecT: 169 ms MV A Luis: 1.11 m/s MV E/A Ratio: 0.94 RAP: 5.00 mmHg RVSP: 28.31 mmHg FINDINGS -------- Sinus rhythm. This was a technically adequate study. The left ventricular size is normal. There is mild concentric left ventricular hypertrophy. Overa ll left ventricular systolic function is normal with, an EF between 60 - 65 %. The right ventricle is normal in size. LA is moderately dilated 34-39 ml/m2 The right atrium is normal in size. There is mild aortic valve sclerosis. There is mild aortic regurgitation. The mitral valve leaflets are mildly thickened. Mild mitral regurgitation is present. Mild tricuspid regurgitation present. There is mild pulmonary hypertension. The right ventricular systolic pressure, as measured by Doppler, is 28.31mmHg. Trace/mild (physiologic) pulmonic regurgitation. The aortic root size is normal. Normal inferior vena cava with normal inspiratory collapse consistent with estimated right atrial pre ssure of 5 mmHg. There is no pericardial effusion. CONCLUSIONS -------- 1. Sinus rhythm. 2. This was a technically adequate study. 3. The left ventricular size is normal. 4. There is mild concentric left ventricular hypertrophy. 5. Overall left ventricular systolic function is normal with, an EF between 60 - 65 %. 6. The right ventricle is normal in size. 7. LA is moderately dilated 34-39 ml/m2 8. The right atrium is normal in size. 9. There is mild aortic valve sclerosis. 10. There is mild aortic regurgitation. 11. The mitral valve leaflets are mildly thickened. 12. Mild mitral regurgitation is present. 13. Mild tricuspid regurgitation present. 14. There is mild pulmonary hypertension. 15. The right ventricular systolic pressure, as measured by Doppler, is 28.31mmHg. 16. Trace/mild (physiologic) pulmonic regurgitation. 17. The aortic root size is normal. 18. Normal inferior vena cava with normal inspiratory collapse consistent with estimated right atrial pressure of 5 mmHg. 19. There is no pericardial effusion. PACK MASTER: Jessika Lim RDCS
[2018-07-26] MEDS ORDERED: PANTOPRAZOLE 40 MG TABLET PO SCH (12:00)
[2018-07-26 12:09] VITALS: BP 146/77; PULSE 72; TEMP 97.3
--- NOTE | 2018-07-27 01:41 | DS ---
DISCHARGE SUMMARY DATE OF ADMISSION: July 25, 2018 DATE OF DISCHARGE: July 26, 2018 FINAL DIAGNOSES: 1. Chest pain probably musculoskeletal. 2. Gastroesophageal reflux disease. 3. Essential hypertension. 4. Primary osteoarthritis multiple joints. 5. Hypothyroid. 6. Hiatal hernia. 7. Anxiety not otherwise specified. HOSPITAL COURSE: This patient presented with some chest pain rather atypical sounding. The patient did undergo a stress test by Cardiology and a 2-D echocardiogram. Nurse called me this afternoon that the stress was negative and patient cleared the patient to go home. The patient did have a chest CTA that was negative for PE. CONSULTATION: Dr. Jam Trinidad from Cardiology. PHYSICAL EXAMINATION: VITAL SIGNS: Temperature 97.3, pulse 72, respiratory 18, blood pressure 142/77, pulse ox 97% on room air. Lungs are clear. DISCHARGE MEDICATIONS: 1. Zovirax 400 mg p.o. b.i.d. 2. Tenormin 50 mg p.o. daily. 3. Synthroid 100 mcg a day. 4. Cozaar 100 mg a day. 5. Omeprazole 40 mg a day. 6. Norvasc 5 mg p.o. daily. 7. Crestor 10 mg p.o. q.h.s. Follow up with Dr. Jam Trinidad in 2 weeks, follow up with Dr. Kashmir Law in 3-[address] Law. RADHA / FRANCHESCA: [id number] /
--- NOTE | 2018-07-28 13:16 | ECHOS ---
STRESS ECHOCARDIOGRAM DOBUTAMINE STRESS ECHO INDICATIONS: Chest pain. MEDICATIONS: BASELINE HEART RATE: 69 BASELINE BLOOD PRESSURE: 150/77 MAXIMUM HEART RATE: 116 MAXIMUM BLOOD PRESSURE: 153/50 85% MPHR: 116 100% MPHR: 136 METS: MAXIMUM STAGE REACHED: TOTAL EXERCISE TIME: CLINICAL INFORMATION: Patient was given dobutamine infusion according to the standard protocol. Peak heart rate of 116 was achieved. Maximum blood pressure 153/50 mmHg was noted. Resting EKG shows normal sinus rhythm with normal UT interval and QRS duration and normal ST-T waves. During dobutamine infusion, minimal equivocal ST-segment changes were noted. Occasional PVCs were noted. The baseline echocardiographic images reveal normal left ventricular chamber size with normal left ventricular systolic function. At the peak dose of dobutamine infusion, normal increase in the wall thickness and contractility is noted. FINAL IMPRESSION: 1. This dobutamine stress echocardiographic study is negative for stress-induced ischemia. 2. Occasional PVCs are noted. MMODL / IJN: [id number] /
== END 2018-07-26 15:55 | disposition home or self-care (01) ==
LOC: EC 10:04 → 1SOBS 12:50
PROVIDERS: ADMIT Hospitalist; ATTEND Hospitalist
DX: R07.89 Other chest pain (principal); I11.9 Hypertensive heart disease without heart failure; I25.10 Atherosclerotic heart disease of native coronary artery without angina pectoris; F41.9 Anxiety disorder, unspecified; K44.9 Diaphragmatic hernia without obstruction or gangrene; K21.9 Gastro-esophageal reflux disease without esophagitis; E03.9 Hypothyroidism, unspecified; M15.9 Polyosteoarthritis, unspecified; M47.9 Spondylosis, unspecified; Z79.890 Hormone replacement therapy; Z79.899 Other long term (current) drug therapy; Z88.6 Allergy status to analgesic agent; Z88.2 Allergy status to sulfonamides; Z88.8 Allergy status to other drugs, medicaments and biological substances; Z90.49 Acquired absence of other specified parts of digestive tract; Z85.3 Personal history of malignant neoplasm of breast; Z92.3 Personal history of irradiation; Z80.3 Family history of malignant neoplasm of breast
CPT/HCPCS: 96360; 96361; 99285; 36415; 93005; 93306; 93351; 85379; 80061; 80053; 82150; 83690; 83735; 84484; 85025; 85610; 85730; 71046; 71275; G0378 ×2; J1250; Q9967

== ENCOUNTER → 2018-12-06 | Outpatient (CLI) | payer MEDICARE, BC ==
--- NOTE | 2018-12-06 10:16 | US ---
EXAMINATION TYPE: US abdomen limited DATE OF EXAM: 12/06/2018 COMPARISON: NONE CLINICAL HISTORY: R19.00 ABD Mass. TECHNIQUE/FINDINGS: Assess for hernia at location of: to right of umbilicus No evidence of hernia with this ultrasound. IMPRESSION: No sonographic evidence of ventral hernia with and without Valsalva. Real-time scanning was performed by the die set up worker utilizing Valsalva and additional dynamic maneuve rs to assess for hernia. Images of the contralateral side were also acquired for direct comparison.
== END | disposition home or self-care (01) ==
LOC: RADUSWWP 07:03
PROVIDERS: ATTEND Internal Medicine
DX: R19.00 Intra-abdominal and pelvic swelling, mass and lump, unspecified site (principal)
CPT/HCPCS: 76705

== ENCOUNTER → 2018-12-09 | Outpatient (CLI) | payer MEDICARE, BC ==
--- NOTE | 2018-12-09 09:14 | CT ---
EXAMINATION TYPE: CT abdomen pelvis w con DATE OF EXAM: 12/09/2018 HISTORY: abd mass CT DLP: 1023.3mGycm Automated Exposure Control for Dose Reduction was Utilized. CONTRAST: CT scan of the abdomen and pelvis is performed with IV Contrast, patient injected with 100 mL of Isov ue 300. COMPARISON: CT abdomen and pelvis April 07, 2018. Limited abdominal ultrasound 3 days ago. FINDINGS: LUNG BASES: No significant abnormality is appreciated. LIVER/GB: Cholecystectomy clips are seen. PANCREAS: No significant abnormality is seen. SPLEEN: No significant abnormality is seen. ADRENALS: No significant abnormality is seen. KIDNEYS: Symmetric cortical medullary uptake and excretion from both kidneys without hydronephrosis s een bilaterally. BOWEL: Moderate size hiatal hernia is present. Oral contrast reaches level of the proximal transverse colon. No suspicious small or large bowel dilatation. Mild prominence of fecal material in the trans verse colon. Suboptimal evaluation of distal bowel is noted. Suggestion of mild wall thickening in th e sigmoid colon. Prominent sigmoid colonic diverticulosis without surrounding fat stranding. Scattere d additional colonic diverticula. Normal contrast-filled appendix from cecum. UTERUS/ADNEXA: Anteverted uterus. LYMPH NODES: No greater than 1cm abdominal or pelvic lymph nodes are appreciated. OSSEOUS STRUCTURES: Moderate narrowing both hip joints. Marked levoconvex scoliosis centered at L3 le gaston. Loss of normal lumbar lordosis. Multilevel disc space narrowing most prominent right L2-L3 and L 3-L4 levels as well as left L5-S1 level with moderate to severe spurring and endplate sclerosis all r edemonstrated. OTHER: Moderate calcified plaque distal abdominal aorta extends into the iliac branch vessels. Anterior abdominal wall shows no suspicious hernia defect, concerning solid or cystic mass or abnorma l fluid collection with particular attention to area just right of umbilicus at area of recent patien t concern. IMPRESSION: 1. No suspicious mass or hernia defect anterior right abdominal wall. 2. No suspicious acute findings are evident. Colonic diverticulosis most prominent at sigmoid colon l evel. Persistent mild sigmoid colonic wall thickening, advise colonoscopy correlation if this has not been performed in the last 3-5 years.
== END | disposition home or self-care (01) ==
LOC: RADCTMAIN 06:28
PROVIDERS: ATTEND Internal Medicine
DX: K57.30 Diverticulosis of large intestine without perforation or abscess without bleeding (principal)
CPT/HCPCS: 82565; 84520; 74177; 36415; Q9967

== ENCOUNTER → 2019-03-04 | Outpatient (CLI) | payer MEDICARE, BC ==
--- NOTE | 2019-03-06 10:22 | MM ---
Reason for exam: screening (asymptomatic). Last mammogram was performed 1 year ago. History: Patient is postmenopausal. Family history of breast cancer in mother at age 74 and breast cancer in sister at age 70. Lumpectomy. Radiation therapy. Took hormonal contraceptives for 2 years. Physical Findings: A clinical breast exam by your physician is recommended on an annual basis and results should be correlated with mammographic findings. MG 3D Screening Mammo W/Cad Bilateral CC and MLO view(s) were taken. Prior study comparison: February 28, 2018, bilateral MG 3d diag mammo w/cad NINO. February 11, 2015, mammogram. The breast tissue is heterogeneously dense. This may lower the sensitivity of mammography. Benign appearing bilateral calcifications. No suspicious abnormality. Left biopsy marker noted. No significant changes when compared with prior studies. ASSESSMENT: Benign, BI-RAD 2 RECOMMENDATION: Routine screening mammogram of both breasts in 1 year.
== END | disposition home or self-care (01) ==
LOC: RADMAMWWP 11:08
PROVIDERS: ATTEND Internal Medicine
DX: Z12.31 Encounter for screening mammogram for malignant neoplasm of breast (principal)
CPT/HCPCS: 77063; 77067

== ENCOUNTER → 2020-04-11 | Outpatient (CLI) | payer MEDICARE, BC ==
--- NOTE | 2020-04-15 11:33 | MM ---
Reason for exam: screening (asymptomatic). Last mammogram was performed 1 year and 1 month ago. History: Patient is postmenopausal. Family history of breast cancer in mother at age 74 and breast cancer in sister at age 70. Lumpectomy. Radiation therapy. Took hormonal contraceptives for 2 years. Physical Findings: A clinical breast exam by your physician is recommended on an annual basis and results should be correlated with mammographic findings. MG 3D Screening Mammo W/Cad Bilateral CC and MLO view(s) were taken. Prior study comparison: March 04, 2019, bilateral MG 3d screening mammo w/cad. February 28, 2018, bilateral MG 3d diag mammo w/cad NINO. The breast tissue is heterogeneously dense. This may lower the sensitivity of mammography. Previous mammotome biopsy in the left breast. Small benign oil cyst calcifications. Right subareolar nodular asymmetry on the MLO view does not clearly persist on 3D. Precautionary 6 month follow up recommended. Otherwise, no significant new finding. ASSESSMENT: Probably benign, BI-RAD 3 RECOMMENDATION: Follow-up diagnostic mammogram of the right breast in 6 months.
== END | disposition home or self-care (01) ==
LOC: RADMAMWWP 13:07
PROVIDERS: ATTEND Internal Medicine
DX: Z12.31 Encounter for screening mammogram for malignant neoplasm of breast (principal)
CPT/HCPCS: 77063; 77067

== ENCOUNTER → 2020-10-01 | Outpatient (CLI) | payer MEDICARE, BC ==
--- NOTE | 2020-10-02 08:53 | MM ---
Reason for exam: follow-up at short interval from prior study. Last mammogram was performed 6 months ago. History: Patient is postmenopausal. Family history of breast cancer in mother at age 74 and breast cancer in sister at age 70. Lumpectomy of the left breast. Radiation therapy. Took hormonal contraceptives for 2 years. Physical Findings: Nurse did not find any significant physical abnormalities on exam. MG 3D Diag Mammo W/Cad RT CC and MLO view(s) were taken of the right breast. Prior study comparison: April 11, 2020, bilateral MG 3d screening mammo w/cad. March 04, 2019, bilateral MG 3d screening mammo w/cad. The breast tissue is heterogeneously dense. This may lower the sensitivity of mammography. Right subareolar superior 6mm nodules, most likely benign asymmetry. Right breast ultrasound. These results were verbally communicated with the patient and result sheet given to the patient on 10/01/20. ASSESSMENT: Incomplete: need additional imaging evaluation, BI-RAD 0 RECOMMENDATION: Ultrasound of the right breast.
--- NOTE | 2020-10-02 08:55 | USB ---
Reason for exam: additional evaluation requested from abnormal screening. History: Patient is postmenopausal. Family history of breast cancer in mother at age 74 and breast cancer in sister at age 70. Lumpectomy of the left breast. Radiation therapy. Took hormonal contraceptives for 2 years. US Breast Limited RT Right limited breast ultrasound including focal area of concern, retroareolar and axilla demonstrates no sonographic finding retroareolar/subareolar, most likely benign asymmetry. These results were verbally communicated with the patient and result sheet given to the patient on 10/01/20. ASSESSMENT: Benign, BI-RAD 2 RECOMMENDATION: Follow-up diagnostic mammogram of both breasts in 6 months.
== END | disposition home or self-care (01) ==
LOC: RADMAMWWP 12:36
PROVIDERS: ATTEND Internal Medicine
DX: N63.41 Unspecified lump in right breast, subareolar (principal); N64.89 Other specified disorders of breast
CPT/HCPCS: 77065; 76642; G0279; 77061

== ENCOUNTER 2020-11-08 15:51 | Emergency (ER) | payer MEDICARE, BC ==
[2020-11-08 16:05] VITALS: RESP 18
--- NOTE | 2020-11-08 16:12 | ED ---
General Adult HPI - General Chief complaint: Fall Stated complaint: Fall Time Seen by Provider: 11/08/20 15:53 Source: patient, family, EMS Mode of arrival: ambulatory Limitations: no limitations - History of Present Illness Initial comments: Dictation was produced using [employer] [place] dictation software. please excuse any grammatical, word or spelling errors. Chief Complaint: 84-year-old female presents after fall History of Present Illness: Today 84-year-old female she was walking around at home when she tripped and fell. States that she fell forward landing on her knee, face and head. Patient is not taking any coagulation medications. Denies any loss of consciousness. She complains of pain at the vertex of her head.. She also has a bruise on her right knee. The ROS documented in this emergency department record has been reviewed and confirmed by me. Those systems with pertinent positive or negative responses have been documented in the HPI. All other systems are other negative and/or noncontributory. PHYSICAL EXAM: General Impression: Alert and oriented x3, not in acute distress HEENT: Abrasion to the vertex, ecchymoses around the left maxilla, extra-ocular movements intact, pupils equal and reactive to light bilaterally, mucous membranes moist. Cardiovascular: Heart regular rate and rhythm Chest: Able to complete full sentences, no retractions, no tachypnea Abdomen: abdomen soft, non-tender, non-distended, no organomegaly Musculoskeletal: Pulses present and equal in all extremities, no peripheral edema, bruising over the right knee Motor: no focal deficits noted Neurological: CN II-XII grossly intact, no focal motor or sensory deficits noted Skin: Intact with no visualized rashes Psych: Normal affect and mood ED course: 84-year-old female presents after trip and fall. Vital Signs upon arrival are within acceptable limits. Computed tomography scan of the head and C-spine shows no acute processes. Facial CT is unremarkable. Knee x-rays negative for any acute processes. Patient observed in emergency department for approximately one hour and 30 minutes. Patient is reevaluated 5:30 PM on be stable medical condition. Patient be discharged. Clinical presentation consistent with head and knee contusion. EKG interpretation: Ventricular rate 71, normal sinus rhythm,. Interval and 70, QS 90, QTc 458. No MN prolongation, no QTC prolongation, no ST or T-wave changes noted. EKG compared to 07/25/2018 showing no changes. Overall, this EKG is unremarkable - Related Data Home Medications Medication Instructions Recorded Confirmed Acyclovir [Zovirax] 400 mg PO BID 10/05/17 11/08/20 Levothyroxine Sodium [Synthroid] 100 mcg PO DAILY 10/05/17 11/08/20 Losartan Potassium [Cozaar] 100 mg PO DAILY 10/05/17 11/08/20 Omeprazole 40 mg PO DAILY@1200 10/05/17 11/08/20 amLODIPine [Norvasc] 5 mg PO DAILY 10/05/17 11/08/20 atenoloL [Tenormin] 50 mg PO DAILY 10/05/17 11/08/20 ALPRAZolam [Xanax] 0.25 mg PO BID PRN 11/08/20 11/08/20 Cholecalciferol [Vitamin D3 (25 25 mcg PO DAILY 11/08/20 11/08/20 Mcg = 1000 Iu)] Lovastatin [Mevacor] 10 mg PO Q48H 11/08/20 11/08/20 Allergies Allergy/AdvReac Type Severity Reaction Status Date / Time Sulfa (Sulfonamide Allergy Anaphylaxis Verified 11/08/20 17:01 Antibiotics) aspirin AdvReac Chest Pain Verified 11/08/20 17:01 steroids AdvReac Unknown Uncoded 07/25/18 10:17 Review of Systems ROS Statement: Those systems with pertinent positive or pertinent negative responses have been documented in the HPI. ROS Other: All systems not noted in ROS Statement are negative. Past Medical History Past Medical History: Cancer, Chest Pain / Angina, GERD/Reflux, Hypertension, Osteoarthritis (OA), Thyroid Disorder Additional Past Medical History / Comment(s): Breast cancer with lumpectomy and radiation 2008, hiatel hernia History of Any Multi-Drug Resistant Organisms: None Reported Past Surgical History: Cholecystectomy, Hernia Repair, Tonsillectomy Additional Past Surgical History / Comment(s): hemorroidectomy Past Anesthesia/Blood Transfusion Reactions: No Reported Reaction Past Psychological History: Anxiety Smoking Status: Never smoker Past Alcohol Use History: None Reported Past Drug Use History: None Reported - Past Family History Mother Family Medical History: Cancer Additional Family Medical History / Comment(s): Breast cancer Father Family Medical History: Cancer Additional Family Medical History / Comment(s): Lung and throat General Exam Limitations: no limitations Course Vital Signs 11/08/20 16:00 Temperature 97.8 F Pulse Rate 73 Respiratory 18 Rate Blood Pressure 130/66 O2 Sat by Pulse 98 Oximetry Disposition Clinical Impression: Fall, Head contusion, Knee contusion Disposition: HOME SELF-CARE Condition: Good Instructions (If sedation given, give patient instructions): Fall Prevention for Older Adults (ED) Is patient prescribed a controlled substance at d/c from ED?: No Referrals: Essence Conroy MD [Primary Care Provider] - 1-2 days
--- NOTE | 2020-11-08 17:12 | XR ---
EXAMINATION TYPE: XR knee complete RT DATE OF EXAM: 11/08/2020 COMPARISON: NONE HISTORY: Pain. Fall. TECHNIQUE: 3 views FINDINGS: There is spurring on the patella. I see no fracture nor dislocation. There is no evidence o f joint effusion. IMPRESSION: Mild patellar spurring. No fracture.
--- NOTE | 2020-11-08 17:18 | CT ---
EXAMINATION TYPE: CT brain raghu wo con DATE OF EXAM: 11/08/2020 COMPARISON: None HISTORY: Fall with left sided and superior head injury. Left eye swelling. CT DLP: 1000 mGycm Automated exposure control for dose reduction was used. There is cerebral cortical atrophy. There is no mass effect nor midline shift. There is no sign of in tracranial hemorrhage. The calvarium is intact. Skull base is intact. There is normal aeration of the mastoid sinuses. IMPRESSION: Mild atrophy. No acute intracranial abnormality.
--- NOTE | 2020-11-08 17:22 | CT ---
EXAMINATION TYPE: CT facial bones wo con DATE OF EXAM: 11/08/2020 COMPARISON: None HISTORY: CT DLP: 1000 mGycm Automated exposure control for dose reduction was used. Images obtained from the bottom of the mandible to the top of the frontal sinuses without contrast. The mandibular ring is intact. Temporomandibular joints are intact. Zygomatic arches appear normal. T he maxilla is intact. There is slight depression of the floor of the left bony orbit posteriorly cons istent with a minimal blowout fracture. The depression is 3 mm.. There is soft tissue swelling anterior to the left maxilla and zygoma. There is preseptal mild left p eriorbital soft tissue swelling. The nasal bone appears intact. There is fairly normal aeration of th e paranasal sinuses. IMPRESSION: Left side maxillary soft tissue swelling and periorbital swelling. There is a minimal blowout fractur e of the floor of the left bony orbit measuring 3 mm depression.
[2020-11-08 18:02] VITALS: BP 142/70; PULSE 72; TEMP 97.9
== END 2020-11-08 18:01 | disposition home or self-care (01) ==
LOC: EC 15:51
DX: S00.93XA Contusion of unspecified part of head, initial encounter (principal); S80.01XA Contusion of right knee, initial encounter; M19.90 Unspecified osteoarthritis, unspecified site; K21.9 Gastro-esophageal reflux disease without esophagitis; F32.9 Major depressive disorder, single episode, unspecified; I10 Essential (primary) hypertension; Z85.3 Personal history of malignant neoplasm of breast; Y93.01 Activity, walking, marching and hiking; W01.0XXA Fall on same level from slipping, tripping and stumbling without subsequent striking against object, initial encounter; Y92.009 Unspecified place in unspecified non-institutional (private) residence as the place of occurrence of the external cause; E07.9 Disorder of thyroid, unspecified
CPT/HCPCS: 70450; 70486; 72125; 93005; 99284

== ENCOUNTER → 2021-04-14 | Outpatient (CLI) | payer MEDICARE, BC ==
--- NOTE | 2021-04-14 14:40 | MM ---
Reason for exam: follow-up at short interval from prior study. Last mammogram was performed 6 months ago. History: Patient is postmenopausal. Family history of breast cancer in mother at age 74 and breast cancer in sister at age 70. Lumpectomy of the left breast. Radiation therapy. Took hormonal contraceptives for 2 years. Physical Findings: Nurse did not find any significant physical abnormalities on exam. MG 3D Diag Mammo W/Cad NINO Bilateral CC and MLO view(s) were taken. Prior study comparison: October 01, 2020, right breast MG 3d diag mammo w/cad RT. April 11, 2020, bilateral MG 3d screening mammo w/cad. Previous mammotome biopsy in the left breast. No significant new findings when compared with previous films. These results were verbally communicated with the patient and result sheet given to the patient on 04/14/21. ASSESSMENT: Benign, BI-RAD 2 RECOMMENDATION: Routine screening mammogram of both breasts in 1 year.
== END | disposition home or self-care (01) ==
LOC: RADMAMWWP 13:23
PROVIDERS: ATTEND Family Medicine
DX: R92.8 Other abnormal and inconclusive findings on diagnostic imaging of breast (principal); Z80.3 Family history of malignant neoplasm of breast; Z78.0 Asymptomatic menopausal state
CPT/HCPCS: 77066; G0279; 77062

== ENCOUNTER → 2022-04-16 | Outpatient (CLI) | payer MEDICARE, BC ==
--- NOTE | 2022-04-17 13:24 | MM ---
Reason for Exam: Screening (asymptomatic). Last screening mammogram was performed 12 month(s) ago. Patient History: Menarche at age 10. First Full-Term at age 17. Postmenopausal. Breast cancer, left, under age 48. Previous chest radiation therapy. Patient used Hormonal Contraceptives for 2 years. Lumpectomy on the Left side. Radiation Therapy. Sister had breast cancer, age 70. Mother had breast cancer, age 74. Prior Study Comparison: 04/11/2020 Bilateral Screening Mammogram, [facility]. 10/01/2020 Right Diagnostic Mammogram, [facility]. 04/14/2021 Bilateral Diagnostic Mammogram, [facility]. Tissue Density: The breast tissue is heterogeneously dense. This may lower the sensitivity of mammography. Findings: Analyzed By CAD. Pattern appears symmetrical and stable. Benign vascular and coarse calcifications are present. No significant interval change. Core marker is within the left breast. No suspicious groups of microcalcifications, spiculated or lobular masses, architectural distortion or other secondary signs of malignancy are mammographically apparent. Overall Assessment: Benign, BI-RAD 2 Management: Screening Mammogram of both breasts in 1 year. A negative mammogram report should not preclude additional follow up of suspicious palpable abnormalities. Patient should continue monthly self breast exam. A clinical breast exam by your physician is recommended on an annual basis and results should be correlated with mammographic findings. Electronically signed and approved by: Wilner Paniagua D.O. Radiologis
== END | disposition home or self-care (01) ==
LOC: RADMAMWWP 14:48
PROVIDERS: ATTEND Family Medicine
DX: Z12.31 Encounter for screening mammogram for malignant neoplasm of breast (principal); Z85.3 Personal history of malignant neoplasm of breast; Z78.0 Asymptomatic menopausal state; Z80.3 Family history of malignant neoplasm of breast
CPT/HCPCS: 77063; 77067

== ENCOUNTER 2022-06-01 11:01 | Emergency (ER) | payer MEDICARE, BC ==
--- NOTE | 2022-06-01 13:03 | ED ---
General Adult HPI - General Chief complaint: Recheck/Abnormal Lab/Rx Stated complaint: Thinks she took too many meds Time Seen by Provider: 06/01/22 11:21 Source: patient Mode of arrival: ambulatory Limitations: no limitations - History of Present Illness Initial comments: Patient is an 86 year-old female who presents to the emergency department with concern that she took her daily blood pressure medications twice instead of once today. Patient takes atenolol 50 mg and losartan 100 mg daily. She typically takes them around 6:30 AM. At 8:30 AM today patient was not sure if she had had her daily doses yet therefore took both atenolol and losartan again. Patient does not check her blood pressure at home. She is asymptomatic-no chest pain, shortness of breath, lightheadedness, dizziness, nausea, vomiting. - Related Data Home Medications Medication Instructions Recorded Confirmed Acyclovir [Zovirax] 400 mg PO BID 10/05/17 11/08/20 Levothyroxine Sodium [Synthroid] 100 mcg PO DAILY 10/05/17 11/08/20 Losartan Potassium [Cozaar] 100 mg PO DAILY 10/05/17 11/08/20 Omeprazole 40 mg PO DAILY@1200 10/05/17 11/08/20 amLODIPine [Norvasc] 5 mg PO DAILY 10/05/17 11/08/20 atenoloL [Tenormin] 50 mg PO DAILY 10/05/17 11/08/20 ALPRAZolam [Xanax] 0.25 mg PO BID PRN 11/08/20 11/08/20 Cholecalciferol [Vitamin D3 (25 25 mcg PO DAILY 11/08/20 11/08/20 Mcg = 1000 Iu)] Lovastatin [Mevacor] 10 mg PO Q48H 11/08/20 11/08/20 Allergies Allergy/AdvReac Type Severity Reaction Status Date / Time Sulfa (Sulfonamide Allergy Anaphylaxis Verified 11/08/20 17:01 Antibiotics) aspirin AdvReac Chest Pain Verified 11/08/20 17:01 steroids AdvReac Unknown Uncoded 07/25/18 10:17 Review of Systems ROS Statement: Those systems with pertinent positive or pertinent negative responses have been documented in the HPI. ROS Other: All systems not noted in ROS Statement are negative. Past Medical History Past Medical History: Cancer, Chest Pain / Angina, GERD/Reflux, Hypertension, Osteoarthritis (OA), Thyroid Disorder Additional Past Medical History / Comment(s): Breast cancer with lumpectomy and radiation 2008, hiatel hernia History of Any Multi-Drug Resistant Organisms: None Reported Past Surgical History: Cholecystectomy, Hernia Repair, Tonsillectomy Additional Past Surgical History / Comment(s): hemorroidectomy Past Anesthesia/Blood Transfusion Reactions: No Reported Reaction Past Psychological History: Anxiety Smoking Status: Never smoker Past Alcohol Use History: None Reported Past Drug Use History: None Reported - Past Family History Mother Family Medical History: Cancer Additional Family Medical History / Comment(s): Breast cancer Father Family Medical History: Cancer Additional Family Medical History / Comment(s): Lung and throat General Exam Limitations: no limitations General appearance: alert, in no apparent distress Head exam: Present: atraumatic, normocephalic, normal inspection Respiratory exam: Present: normal lung sounds bilaterally. Absent: respiratory distress, wheezes, rales, rhonchi, stridor Cardiovascular Exam: Present: regular rate, normal rhythm, normal heart sounds. Absent: systolic murmur, diastolic murmur, rubs, gallop, clicks Neurological exam: Present: alert, oriented X3, CN II-XII intact Psychiatric exam: Present: normal affect, normal mood Skin exam: Present: warm, dry, intact, normal color. 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 sent in by a medical professional or institution (, PA, EX ASSISTANT/PROGRAM DIRECTOR, urgent care, hospital, or fpc...) When possible be specific @ -No Did you speak to anyone other than the patient for history (EMS, parent, family, police, friend...)? What history was obtained from this source @ -No Did you review nursing and triage notes (agree or disagree)? Why? @ -I reviewed and agree with nursing and triage notes Were old charts reviewed (outside hosp., previous admission, EMS record, old EKG, old radiological studies, urgent care reports/EKG's, fpc records)? Report findings @ -No old charts were reviewed Differential Diagnosis (chest pain, altered mental status, abdominal pain women, abdominal pain men, vaginal bleeding, weakness, fever, dyspnea, syncope, headache, dizziness, GI bleed, back pain, seizure, CVA, palpatations, mental health)? @ -not applicable EKG interpreted by me (3pts min.). @ -As above X-rays interpreted by me (1pt min.). @ -None done CT interpreted by me (1pt min.). @ -None done U/S interpreted by me (1pt. min.). @ -None done What testing was considered but not performed or refused? (CT, X-rays, U/S, labs)? Why? @ -None What meds were considered but not given or refused? Why? @ -None Did you discuss the management of the patient with other professionals (professionals i.e. , PA, EX ASSISTANT/PROGRAM DIRECTOR, lab, RT, psych nurse, social services assistant, grid molder, teacher, corporate security officer, therapeutic case manager)? Give summary @ -No Was smoking cessation discussed for >3mins.? @ -No Was critical care preformed (if so, how long)? @ -No Were there social determinants of health that impacted care today? How? (Homelessness, low income, unemployed, alcoholism, drug addiction, transportation, low edu. Level, literacy, decrease access to med. care, senior care, rehab)? @ -No Was there de-escalation of care discussed even if they declined (Discuss DNR or withdrawal of care, Hospice)? DNR status @ -No What co-morbidities impacted this encounter? (DM, HTN, Smoking, COPD, CAD, Cancer, CVA, ARF, Chemo, Hep., AIDS, mental health diagnosis, sleep apnea, morbid obesity)? @ -None Was patient admitted / discharged? Hospital course, mention meds given and route, prescriptions, significant lab abnormalities, going to OR and other pertinent info. @ -Discharge. Orthostatics negative. Patient observed closely in the emergency department and her blood pressure actually remained high. She remained asymptomatic. Patient is to follow-up with primary care provider for further evaluation and management of her blood pressure. Undiagnosed new problem with uncertain prognosis? @ -No Drug Therapy requiring intensive monitoring for toxicity (Heparin, Nitro, Insulin, Cardizem)? @ -No Were any procedures done? @ -No Diagnosis/symptom? @ -Medication overdose Acute, or Chronic, or Acute on Chronic? @ -Acute Uncomplicated (without systemic symptoms) or Complicated (systemic symptoms)? @ -Uncomplicated Side effects of treatment? @ -No Exacerbation, Progression, or Severe Exacerbation? @ -No Poses a threat to life or bodily function? How? (Chest pain, [place], [place], pneumonia, PE, COPD, DKA, ARF, appy, cholecystitis, CVA, Diverticulitis, Homicidal, Suicidal, threat to staff... and all critical care pts) @ -No Dr. Bolanos is my attending Disposition Clinical Impression: Medication overdose Disposition: HOME SELF-CARE Condition: Good Instructions (If sedation given, give patient instructions): Hypotension (ED) Additional Instructions: Continue to monitor blood pressure home. Increase water intake. Follow-up with primary care provider in one to 2 days. Return to the emergency department if you experience new, concerning, or worsening symptoms. Is patient prescribed a controlled substance at d/c from ED?: No Referrals: Jose F Navarro MD [Primary Care Provider] - 1-2 days
[2022-06-01 13:10] VITALS: RESP 18
[2022-06-01 13:14] VITALS: BP 168/78; PULSE 68; TEMP 98
== END 2022-06-01 13:14 | disposition home or self-care (01) ==
LOC: EC 11:01
DX: T44.7X1A Poisoning by beta-adrenoreceptor antagonists, accidental (unintentional), initial encounter (principal); T46.5X1A Poisoning by other antihypertensive drugs, accidental (unintentional), initial encounter; I10 Essential (primary) hypertension; K21.9 Gastro-esophageal reflux disease without esophagitis; E07.9 Disorder of thyroid, unspecified; Z88.2 Allergy status to sulfonamides; Z88.8 Allergy status to other drugs, medicaments and biological substances; Z88.6 Allergy status to analgesic agent; Z79.899 Other long term (current) drug therapy; Z79.890 Hormone replacement therapy; Z85.3 Personal history of malignant neoplasm of breast; Z90.49 Acquired absence of other specified parts of digestive tract
CPT/HCPCS: 99283

== ENCOUNTER → 2022-09-29 | Outpatient (CLI) | payer MEDICARE, BC ==
--- NOTE | 2022-09-29 17:09 | US ---
EXAMINATION TYPE: US venous doppler duplex LE BI DATE OF EXAM: 09/29/2022 4:24 PM COMPARISON: NONE CLINICAL INDICATION: Female, 86 years old with history of R79.1 ABNORMAL COAGULATION P R60.0 LOCALIZE D EDEMA; d-dimer 0.7, chronic swelling and pain in left ankle for 3 years SIDE PERFORMED: Bilateral TECHNIQUE: The lower extremity deep venous system is examined utilizing real time linear array sonog larry with graded compression, doppler sonography and color-flow sonography. VESSELS IMAGED: Common Femoral Vein Deep Femoral Vein Greater Saphenous Vein * Femoral Vein Popliteal Vein Small Saphenous Vein * Proximal Calf Veins (* superficial vessels) Right Leg: Negative for DVT 5.0cm popiteal cyst seen Left Leg: Negative for DVT *negative findings given to office IMPRESSION: 1. Bilateral lower extremity ultrasound negative for deep venous thrombosis. 2. Right popliteal cyst
== END | disposition home or self-care (01) ==
LOC: RADUSWWP 15:40
PROVIDERS: ATTEND Family Medicine
DX: M71.21 Synovial cyst of popliteal space [Baker], right knee (principal); M71.22 Synovial cyst of popliteal space [Baker], left knee; R79.1 Abnormal coagulation profile; R60.0 Localized edema
CPT/HCPCS: 93970

== ENCOUNTER → 2023-04-21 | Outpatient (CLI) | payer MEDICARE, BC ==
--- NOTE | 2023-04-24 23:31 | MM ---
Reason for Exam: Hx of breast cancer, conservation therapy. Last screening mammogram was performed 12 month(s) ago. Patient History: Menarche at age 10. First Full-Term at age 17. Postmenopausal. Patient has history of breast feeding. Breast cancer, left, age 71. Previous chest radiation therapy at age 71. Patient used Hormonal Contraceptives for 2 years. Lumpectomy on the Left side. Radiation Therapy. Sister had breast cancer, age 70. Sister had breast cancer at or over age 50. Mother had breast cancer, age 74. Prior Study Comparison: 02/28/2018 Bilateral Diagnostic Mammogram, [facility]. 03/04/2019 Bilateral Screening Mammogram, [facility]. 04/11/2020 Bilateral Screening Mammogram, [facility]. 10/01/2020 Right Diagnostic Mammogram, [facility]. 04/14/2021 Bilateral Diagnostic Mammogram, [facility]. 04/16/2022 Bilateral MG 3D screening mammo w/cad, [facility]. Tissue Density: The breast tissue is heterogeneously dense. This may lower the sensitivity of mammography. Findings: Analyzed By CAD. Benign vascular calcifications are redemonstrated. Microclip left breast from prior biopsy. A few oil cyst calcifications on both sides remain unchanged. There is no suspicious group of microcalcifications or new suspicious mass in either breast. Overall Assessment: Benign, BI-RAD 2 Management: Screening Mammogram of both breasts in 1 year. . Patient should continue monthly self-breast exams. A clinical breast exam by your physician is recommended on an annual basis. This exam should not preclude additional follow-up of suspicious palpable abnormalities. Note on Betsey scores and lifetime risk: 1. A Betsey score greater than 3% is considered moderate risk. If this is the case, consider specialist referral to assess eligibility for a risk reducing agent. 2. If overall lifetime risk for the development of breast cancer is 20% or higher, the patient may qualify for future screening with alternating mammogram and breast MRI. Electronically signed and approved by: Claudia Bird M.D. Radiologist
== END | disposition home or self-care (01) ==
LOC: RADMAMWWP 12:40
PROVIDERS: ATTEND Family Medicine
DX: Z12.31 Encounter for screening mammogram for malignant neoplasm of breast (principal); Z78.0 Asymptomatic menopausal state; Z80.3 Family history of malignant neoplasm of breast
CPT/HCPCS: 77063; 77067

== ENCOUNTER 2023-06-03 10:15 | Observation (INO) | payer MEDICARE, BC ==
--- NOTE | 2023-06-03 11:09 | ED ---
General Adult HPI - General Chief complaint: GI Bleed Stated complaint: Chest pain, lightheaded, rectal bleeding Time Seen by Provider: 06/03/23 10:50 Source: patient, family, RN notes reviewed Mode of arrival: wheelchair Limitations: no limitations - History of Present Illness Initial comments: Patient is an 87-year-old female presenting to the ER with a chief complaint of bright red blood per rectum. Patient reports earlier this morning she had a b owel movement and noticed bright red blood when she wiped. Patient also states when she stood up blood was pouring out of her bottom. Patient denies any straining as she took MiraLAX last night. Patient denies any current chest pain, shortness of breath, lightheaded, dizziness. Family, at bedside, states that she has been having frequent dizzy and lightheaded spells. Patient also reports she has been having chest pain recently. She states she feels dizzy and lightheaded mainly when she is changing positions. Patient also takes a water pill but family is unsure of when she last took it. Patient denies any headaches, fevers, chills,abdominal pain, urinary symptoms, peripheral edema. - Related Data Home Medications Medication Instructions Recorded Confirmed Acyclovir [Zovirax] 400 mg PO BID 10/05/17 06/03/23 Levothyroxine Sodium [Synthroid] 100 mcg PO DAILY 10/05/17 06/03/23 Losartan Potassium [Cozaar] 100 mg PO DAILY 10/05/17 06/03/23 Omeprazole 40 mg PO DAILY@1200 10/05/17 06/03/23 atenoloL [Tenormin] 50 mg PO DAILY 10/05/17 06/03/23 Lovastatin [Mevacor] 10 mg PO Q48H 11/08/20 06/03/23 Furosemide [Lasix] 40 mg PO DAILY 06/03/23 06/03/23 Potassium Chloride ER [K-Dur 10] 10 meq PO DAILY 06/03/23 06/03/23 Allergies Allergy/AdvReac Type Severity Reaction Status Date / Time Sulfa (Sulfonamide Allergy Anaphylaxis Verified 06/03/23 11:51 Antibiotics) aspirin AdvReac Chest Pain Verified 06/03/23 11:50 steroids AdvReac Unknown Uncoded 06/03/23 11:51 Review of Systems ROS Statement: Those systems with pertinent positive or pertinent negative responses have been documented in the HPI. ROS Other: All systems not noted in ROS Statement are negative. Past Medical History Past Medical History: Cancer, Chest Pain / Angina, GERD/Reflux, Hypertension, Osteoarthritis (OA), Thyroid Disorder Additional Past Medical History / Comment(s): Breast cancer with lumpectomy and radiation 2009, hiatel hernia History of Any Multi-Drug Resistant Organisms: None Reported Past Surgical History: Cholecystectomy, Hernia Repair, Tonsillectomy Additional Past Surgical History / Comment(s): hemorroidectomy Past Anesthesia/Blood Transfusion Reactions: No Reported Reaction Past Psychological History: Anxiety Smoking Status: Never smoker Past Alcohol Use History: None Reported Past Drug Use History: None Reported - Past Family History Mother Family Medical History: Cancer Additional Family Medical History / Comment(s): Breast cancer Father Family Medical History: Cancer Additional Family Medical History / Comment(s): Lung and throat General Exam Limitations: no limitations General appearance: alert, in no apparent distress Head exam: Present: atraumatic, normocephalic, normal inspection Respiratory exam: Present: normal lung sounds bilaterally. Absent: respiratory distress, wheezes, rales, rhonchi, stridor Cardiovascular Exam: Present: regular rate, normal rhythm, normal heart sounds. Absent: systolic murmur, diastolic murmur, rubs, gallop, clicks GI/Abdominal exam: Present: soft, normal bowel sounds. Absent: distended, tenderness, guarding, rebound, rigid Extremities exam: Present: normal inspection, full ROM, normal capillary refill, other (Nonpitting edema bilaterally lower extremities). Absent: tenderness, pe cristobal edema, joint swelling, calf tenderness Neurological exam: Present: alert, oriented X3, CN II-XII intact Psychiatric exam: Present: normal affect, normal mood Skin exam: Present: warm, dry, intact, normal color. Absent: rash Course Vital Signs 06/03/23 06/03/23 06/03/23 10:24 12:26 13:45 Temperature 98.1 F 97.7 F Pulse Rate 70 63 62 Respiratory 20 20 20 Rate Blood Pressure 155/67 161/77 159/67 O2 Sat by Pulse 98 99 99 Oximetry - Reevaluation(s) Reevaluation #1: 06/03/23 13:[address] Mrash for medical admission. Medical Decision Making - Medical Decision Making Was pt. sent in by a medical professional or institution (, [facility], [employer], urgent care, hospital, or residential...) When possible be specific @ -No Did you speak to anyone other than the patient for history (EMS, parent, family, police, friend...)? What history was obtained from this source @ -Son providing some past medical history and HPI. Did you review nursing and triage notes (agree or disagree)? Why? @ -I reviewed and agree with nursing and triage notes Were old charts reviewed (outside hosp., previous admission, EMS record, old EKG, old radiological studies, urgent care reports/EKG's, residential records)? Report findings @ -No old charts were reviewed Differential Diagnosis (chest pain, altered mental status, abdominal pain women, abdominal pain men, vaginal bleeding, weakness, fever, dyspnea, syncope, headache, dizziness, GI bleed, back pain, seizure, CVA, palpatations, mental health, musculoskeletal)? @ -Differential GI Bleed: Esophageal varices, aortoenteric fistula, Galina-Aviles, gastritis, peptic ulcer disease, diverticulosis, inflammatory bowel disease, hemorrhoids, fissure, colitis, malignancy, Meckels diverticulum, this is not meant to be an all- inclusive list. EKG interpreted by me (3pts min.). @ -As above X-rays interpreted by me (1pt min.). @ -Chest x-ray interpreted by me shows no acute process. CT interpreted by me (1pt min.). @ -None done U/S interpreted by me (1pt. min.). @ -None done What testing was considered but not performed or refused? (CT, X-rays, U/S, labs)? Why? @ -None What meds were considered but not given or refused? Why? @ -None Did you discuss the management of the patient with other professionals (professionals i.e. , [facility], [employer], lab, RT, psych nurse, health and social care teacher, assembler semiconductor, teacher, chief science officer, nurse case management)? Give summary @ -No Was smoking cessation discussed for >3mins.? @ -No Was critical care preformed (if so, how long)? @ -No Were there social determinants of health that impacted care today? How? (Homelessness, low income, unemployed, alcoholism, drug addiction, transportatio n, low edu. Level, literacy, decrease access to med. care, [facility], rehab)? @ -No Was there de-escalation of care discussed even if they declined (Discuss DNR or withdrawal of care, Hospice)? DNR status @ -No What co-morbidities impacted this encounter? (DM, HTN, Smoking, COPD, CAD, Cancer, CVA, ARF, Chemo, Hep., AIDS, mental health diagnosis, sleep apnea, morbid obesity)? @ -Hypertension, hypothyroid breast cancer history. Was patient admitted / discharged? Hospital course, mention meds given and route, prescriptions, significant lab abnormalities, going to OR and other pertinent info. @ -Admitted. Patient is an 87-year-old female presenting to the ER with chief complaint of bright blood per rectum. Vitals stable. Patient in no signs of acute distress. Rectal exam was performed without signs of hemorrhoids or anal fissures. Laboratory in the ER unremarkable. Hemoglobin stable at 13.3. Stool occult blood was positive. COVID-19, RSV, influenza negative. Urinalysis without sig ns of infection. EKG showed normal sinus rhythm with no acute evidence of infarct or ischemia. Due to concern of GI bleed admission was considered. I discussed lab and imaging results with patient. Patient is agreeable to admission. GI will be on consult. I discussed this case with Dr. Marsh from [facility] physicians who accepted medical management. Patient will be admitted for further care and treatment.. Undiagnosed new problem with uncertain prognosis? @ -No Drug Therapy requiring intensive monitoring for toxicity (Heparin, Nitro, Insulin, Cardizem)? @ -No Were any procedures done? @ -No Diagnosis/symptom? @ -GI bleed Acute, or Chronic, or Acute on Chronic? @ -Acute Uncomplicated (without systemic symptoms) or Complicated (systemic symptoms)? @ -Uncomplicated Side effects of treatment? @ -No Exacerbation, Progression, or Severe Exacerbation? @ -No Poses a threat to life or bodily function? How? (Chest pain, [place], [place], pneumonia, PE, COPD, DKA, ARF, appy, cholecystitis, CVA, Diverticulitis, Homicidal, Suicidal, threat to staff... and all critical care pts) @ -No - Lab Data Result diagrams: 06/03/23 11:15 06/03/23 11:15 Lab Results 06/03/23 06/03/23 06/03/23 Range/Units 11:15 11:15 11:15 WBC 4.6 (3.8-10.6) k/uL RBC 4.49 (3.80-5.40) m/uL Hgb 13.3 (11.4-16.0) gm/dL Hct 37.9 (34.0-46.0) % MCV 84.3 (80.0-100.0) fL MCH 29.6 (25.0-35.0) pg MCHC 35.1 (31.0-37.0) g/dL RDW 14.1 (11.5-15.5) % Plt Count 289 (150-450) k/uL MPV 8.1 Neutrophils % 61 % Lymphocytes % 23 % Monocytes % 8 % Eosinophils % 4 % Basophils % 1 % Neutrophils # 2.8 (1.3-7.7) k/uL Lymphocytes # 1.1 (1.0-4.8) k/uL Monocytes # 0.4 (0-1.0) k/uL Eosinophils # 0.2 (0-0.7) k/uL Basophils # 0.0 (0-0.2) k/uL PT 10.2 (10.0-12.5) sec INR 0.9 (<1.2) APTT 21.0 L (22.0-30.0) sec Sodium (137-145) mmol/L Potassium (3.5-5.1) mmol/L Chloride (98-107) mmol/L Carbon Dioxide (22-30) mmol/L Anion Gap mmol/L BUN (7-17) mg/dL Creatinine (0.52-1.04) mg/dL Est GFR (CKD-EPI)AfAm (>60 ml/min/1.73 sqM) Est GFR (CKD-EPI)NonAf (>60 ml/min/1.73 sqM) Glucose (74-99) mg/dL Calcium (8.4-10.2) mg/dL Magnesium (1.6-2.3) mg/dL Total Bilirubin (0.2-1.3) mg/dL AST (14-36) U/L ALT (4-34) U/L Alkaline Phosphatase (38-126) U/L Troponin I (0.000-0.034) ng/mL Total Protein (6.3-8.2) g/dL Albumin (3.5-5.0) g/dL Amylase (30-110) U/L Lipase (23-300) U/L Urine Color Urine Appearance (Clear) Urine pH (5.0-8.0) Ur Specific [place] (1.001-1.035) Urine Protein (Negative) Urine Glucose (UA) (Negative) Urine Ketones (Negative) Urine Blood (Negative) Urine Nitrite (Negative) Urine Bilirubin (Negative) Urine Urobilinogen (<2.0) mg/dL Ur Leukocyte Esterase (Negative) Urine WBC (0-5) /hpf Urine Bacteria (None) /hpf Stool Occult Blood Positive H (Negative) Influenza Type A (PCR) (Not Detectd) Influenza Type B (PCR) (Not Detectd) RSV (PCR) (Not Detectd) SARS-CoV-2 (PCR) (Not Detectd) Blood Type Blood Type Confirm Blood Type Recheck Bld Type Recheck Status Antibody Screen Spec Expiration Date 06/03/23 06/03/23 06/03/23 Range/Units 11:15 11:15 11:15 WBC (3.8-10.6) k/uL RBC (3.80-5.40) m/uL Hgb (11.4-16.0) gm/dL Hct (34.0-46.0) % MCV (80.0-100.0) fL MCH (25.0-35.0) pg MCHC (31.0-37.0) g/dL RDW (11.5-15.5) % Plt Count (150-450) k/uL MPV Neutrophils % % Lymphocytes % % Monocytes % % Eosinophils % % Basophils % % Neutrophils # (1.3-7.7) k/uL Lymphocytes # (1.0-4.8) k/uL Monocytes # (0-1.0) k/uL Eosinophils # (0-0.7) k/uL Basophils # (0-0.2) k/uL PT (10.0-12.5) sec INR (<1.2) APTT (22.0-30.0) sec Sodium 131 L (137-145) mmol/L Potassium 4.3 (3.5-5.1) mmol/L Chloride 97 L (98-107) mmol/L Carbon Dioxide 26 (22-30) mmol/L Anion Gap 8 mmol/L BUN 21 H (7-17) mg/dL Creatinine 0.89 (0.52-1.04) mg/dL Est GFR (CKD-EPI)AfAm 67 (>60 ml/min/1.73 sqM) Est GFR (CKD-EPI)NonAf 58 (>60 ml/min/1.73 sqM) Glucose 100 H (74-99) mg/dL Calcium 9.2 (8.4-10.2) mg/dL Magnesium 1.9 (1.6-2.3) mg/dL Total Bilirubin 0.7 (0.2-1.3) mg/dL AST 23 (14-36) U/L ALT 8 (4-34) U/L Alkaline Phosphatase 75 (38-126) U/L Troponin I <0.012 (0.000-0.034) ng/mL Total Protein 6.5 (6.3-8.2) g/dL Albumin 3.9 (3.5-5.0) g/dL Amylase 51 (30-110) U/L Lipase 162 (23-300) U/L Urine Color Urine Appearance (Clear) Urine pH (5.0-8.0) Ur Specific [place] (1.001-1.035) Urine Protein (Negative) Urine Glucose (UA) (Negative) Urine Ketones (Negative) Urine Blood (Negative) Urine Nitrite (Negative) Urine Bilirubin (Negative) Urine Urobilinogen (<2.0) mg/dL Ur Leukocyte Esterase (Negative) Urine WBC (0-5) /hpf Urine Bacteria (None) /hpf Stool Occult Blood (Negative) Influenza Type A (PCR) (Not Detectd) Influenza Type B (PCR) (Not Detectd) RSV (PCR) (Not Detectd) SARS-CoV-2 (PCR) (Not Detectd) Blood Type A Positive Blood Type Confirm Blood Type Recheck No Previous Record Bld Type Recheck Status CABO Indicated Antibody Screen NEGATIVE Spec Expiration Date 06/06/2023 - 231406/03/23 06/03/23 06/03/23 Range/Units 11:15 11:15 11:45 WBC (3.8-10.6) k/uL RBC (3.80-5.40) m/uL Hgb (11.4-16.0) gm/dL Hct (34.0-46.0) % MCV (80.0-100.0) fL MCH (25.0-35.0) pg MCHC (31.0-37.0) g/dL RDW (11.5-15.5) % Plt Count (150-450) k/uL MPV Neutrophils % % Lymphocytes % % Monocytes % % Eosinophils % % Basophils % % Neutrophils # (1.3-7.7) k/uL Lymphocytes # (1.0-4.8) k/uL Monocytes # (0-1.0) k/uL Eosinophils # (0-0.7) k/uL Basophils # (0-0.2) k/uL PT (10.0-12.5) sec INR (<1.2) APTT (22.0-30.0) sec Sodium (137-145) mmol/L Potassium (3.5-5.1) mmol/L Chloride (98-107) mmol/L Carbon Dioxide (22-30) mmol/L Anion Gap mmol/L BUN (7-17) mg/dL Creatinine (0.52-1.04) mg/dL Est GFR (CKD-EPI)AfAm (>60 ml/min/1.73 sqM) Est GFR (CKD-EPI)NonAf (>60 ml/min/1.73 sqM) Glucose (74-99) mg/dL Calcium (8.4-10.2) mg/dL Magnesium (1.6-2.3) mg/dL Total Bilirubin (0.2-1.3) mg/dL AST (14-36) U/L ALT (4-34) U/L Alkaline Phosphatase (38-126) U/L Troponin I (0.000-0.034) ng/mL Total Protein (6.3-8.2) g/dL Albumin (3.5-5.0) g/dL Amylase (30-110) U/L Lipase (23-300) U/L Urine Color Colorless Urine Appearance Clear (Clear) Urine pH 7.0 (5.0-8.0) Ur Specific [place] 1.006 (1.001-1.035) Urine Protein Negative (Negative) Urine Glucose (UA) Negative (Negative) Urine Ketones Negative (Negative) Urine Blood Negative (Negative) Urine Nitrite Negative (Negative) Urine Bilirubin Negative (Negative) Urine Urobilinogen <2.0 (<2.0) mg/dL Ur Leukocyte Esterase Moderate H (Negative) Urine WBC 19 H (0-5) /hpf Urine Bacteria Moderate H (None) /hpf Stool Occult Blood (Negative) Influenza Type A (PCR) Not Detected (Not Detectd) Influenza Type B (PCR) Not Detected (Not Detectd) RSV (PCR) Not Detected (Not Detectd) SARS-CoV-2 (PCR) Not Detected (Not Detectd) Blood Type Blood Type Confirm A Positive Blood Type Recheck Bld Type Recheck Status Antibody Screen Spec Expiration Date - EKG Data -: EKG Interpreted by Me EKG Comments: EKG taken at 10: 52 shows a normal sinus rhythm with no acute ST segment or T wave abnormalities. Ventricular rate 65, HI interval 168, QRS duration 94, QT/QTc 410/421. - Radiology Data Radiology results: report reviewed, image reviewed Disposition Clinical Impression: GI bleed, Dizziness Disposition: ADMITTED IP TO THIS [facility] Condition: Good Time of Disposition: 13:37
[2023-06-03 11:41] LABS: Appearance,Urine Clear (Clear); Bacteria,Urine Moderate /hpf; Bilirubin,Urine Negative (Negative); Blood,Urine Negative (Negative); Color,Urine Colorless; Glucose,Urine (UA) Negative (Negative); Ketones,Urine Negative (Negative); Leukocyte Esterase,Urine Moderate (Negative); Nitrite,Urine Negative (Negative); Protein,Urine Negative (Negative); Specific Gravity,Urine 1.006 (1.001-1.035); Urobilinogen,Urine <2.0 mg/dL (<2.0); WBC,Urine 19 /hpf (0-5)
--- NOTE | 2023-06-03 12:19 | XR ---
EXAMINATION TYPE: XR chest 2V DATE OF EXAM: 06/03/2023 COMPARISON: 07/25/2018 HISTORY: 87-year-old female with rectal bleeding and pain TECHNIQUE: AP and lateral views FINDINGS: Heart is upper limits of normal in size. Atherosclerotic arch calcifications. Eventration anterior ri ght hemidiaphragm. Mild interstitial prominence of the chronic appearance. Hazy densities relating to large body habitus and overlying soft tissue. No consolidation or pleural effusion. IMPRESSION: Chronic changes. No acute process seen.
[2023-06-03 12:21] LABS: Basophils % (A) 1 %; Eosinophils # (A) 0.2 k/uL (0-0.7); Eosinophils % (A) 4 %; HCT 37.9 % (34.0-46.0); HGB 13.3 gm/dL (11.4-16.0); Lymphocytes # (A) 1.1 k/uL (1.0-4.8); Lymphocytes % (A) 23 %; MCH 29.6 pg (25.0-35.0); MCHC 35.1 g/dL (31.0-37.0); MCV 84.3 fL (80.0-100.0); Mean Platelet Volume 8.1; Monocytes # (A) 0.4 k/uL (0-1.0); Monocytes % (A) 8 %; Neutrophils # (A) 2.8 k/uL (1.3-7.7); Neutrophils % (A) 61 %; Platelet Count 289 k/uL (150-450); RBC 4.49 m/uL (3.80-5.40); RDW 14.1 % (11.5-15.5); WBC 4.6 k/uL (3.8-10.6)
[2023-06-03 12:39] LABS: ALT 8 U/L (4-34); AST 23 U/L (14-36); African American GFR (CKD) 67 (>60 ml/min/1.73 sqM); Albumin 3.9 g/dL (3.5-5.0); Alkaline Phosphatase 75 U/L (38-126); Amylase 51 U/L (30-110); Anion Gap 8 mmol/L; Blood Urea Nitrogen 21 mg/dL (7-17); Calcium 9.2 mg/dL (8.4-10.2); Carbon Dioxide 26 mmol/L (22-30); Chloride 97 mmol/L (98-107); Glucose 100 mg/dL (74-99); INR 0.9 (<1.2); Lipase 162 U/L (23-300); Magnesium 1.9 mg/dL (1.6-2.3); Non-African American GFR(CKD) 58 (>60 ml/min/1.73 sqM); Potassium 4.3 mmol/L (3.5-5.1); Prothrombin Time 10.2 sec (10.0-12.5); Sodium 131 mmol/L (137-145); Total Bilirubin 0.7 mg/dL (0.2-1.3); Total Protein 6.5 g/dL (6.3-8.2)
[2023-06-03] MEDS ORDERED: ACETAMINOPHEN TAB 325 MG TAB PO PRN (13:34)
[2023-06-03] MEDS ORDERED: ONDANSETRON 4 MG/2 ML VIAL IVP PRN (13:34)
[2023-06-03] MEDS ORDERED: NALOXONE 0.4 MG/ML 1 ML VIAL IV PRN (13:34)
[2023-06-03] MEDS ORDERED: HYDROmorphone 0.5 MG/0.5 ML SYRINGE IVP STA (13:42)
[2023-06-03] MEDS: SODIUM CHLORIDE 0.9% 1,000 ML IV SCH (13:43)
--- NOTE | 2023-06-03 16:20 | P.HPIM ---
History of Present Illness H&P Date: 06/03/23 87-year-old female with past medical history of HTN, hypothyroidism, dyslipidemia, GERD. Patient presents to the ED for 1 episode of BRBPR that happened this morning. No bowel movement since. No abdominal pain, nausea or vomiting. Reports h/o C-scope > 10 years ago. She does report intermittent chest pain, described as indigestion, ongoing for the past 2 weeks, none currently. She does report lightheadedness when changing position also ongoing for the past 2 weeks. In the ED, patient underwent extensive evaluation: Elevated BP of 164/77. CBC unremarkable. Coag panel within normal limits. CMP Na 131, Cl 97, BUN 21, glu 100. Troponin < 0.012. Mag 1.9. Amylase 51. Lipase 162. UDS moderate LE. Stool occult blood positive. Flu, RSV, COVID negative. EKG normal sinus rhythm. CXR no acute pathology. Patient is admitted for further workup. General: Non toxic, no distress, appears at stated age Derm: Warm, dry Head: Atraumatic, normocephalic, symmetric Eyes: EOMI, no lid lag, anicteric sclera Mouth: No lip lesion, mucus membranes moist Cardiovascular: S1S2 reg, no murmur Lungs: CTA bilateral, no rhonchi, no rales, no accessory muscle use Abdominal: Soft, nontender to palpation, no guarding, no appreciable organomegaly Ext: No gross muscle atrophy, no edema, no contractures Neuro: no focal neuro deficits Psych: Alert, oriented, appropriate affect Based on my assessment of this patient, this patient meets a high complexity level of care. Patient has an acute diagnosis of altered mentation that poses a threat to life or bodily function. BRBPR: Hemorrhoids or Diverticulosis. Monitor for further episodes of bleeding. Repeat CBC tomorrow morning. GI consulted. Hyponatremia: HypoCl. Possible dehydration. NS at 75 cc/hr. Repeat BMP tomorrow. Abnormal UA: No urinary symptoms. No Abx. Chronic conditions: HTN, hypothyroidism, dyslipidemia, GERD Further advised slow positional changes for lightheadedness. She could also follow up with her PCP for atypical chest pain for a possible stress test. CODE STATUS: NO CODE. OK with intubation. DVT Prophylaxis: SCD GI Prophylaxis: Protonix. Designated medical POA if patient is not able to make medical decisions for themselves: Everardo significant other. I have reviewed the following sediment remediation consultant notes: I have reviewed the results of the following tests: As above. I have ordered the following tests: As above. I have discussed the care of this patient with the following independent historian: Discussed with RN. I have independently interpreted the following test below: EKG. I have discussed the management of this patient with the following physician: Past Medical History Past Medical History: Cancer, Chest Pain / Angina, GERD/Reflux, Hypertension, Osteoarthritis (OA), Thyroid Disorder Additional Past Medical History / Comment(s): Breast cancer with lumpectomy and radiation 2008, hiatel hernia History of Any Multi-Drug Resistant Organisms: None Reported Past Surgical History: Cholecystectomy, Hernia Repair, Tonsillectomy Additional Past Surgical History / Comment(s): hemorroidectomy Past Anesthesia/Blood Transfusion Reactions: No Reported Reaction Past Psychological History: Anxiety Smoking Status: Never smoker Past Alcohol Use History: None Reported Past Drug Use History: None Reported - Past Family History Mother Family Medical History: Cancer Additional Family Medical History / Comment(s): Breast cancer Father Family Medical History: Cancer Additional Family Medical History / Comment(s): Lung and throat Medications and Allergies Home Medications Medication Instructions Recorded Confirmed Type Acyclovir [Zovirax] 400 mg PO BID 10/05/17 06/03/23 History Levothyroxine Sodium [Synthroid] 100 mcg PO DAILY 10/05/17 06/03/23 History Losartan Potassium [Cozaar] 100 mg PO DAILY 10/05/17 06/03/23 History Omeprazole 40 mg PO DAILY@1200 10/05/17 06/03/23 History atenoloL [Tenormin] 50 mg PO DAILY 10/05/17 06/03/23 History Lovastatin [Mevacor] 10 mg PO Q48H 11/08/20 06/03/23 History Furosemide [Lasix] 40 mg PO DAILY 06/03/23 06/03/23 History Potassium Chloride ER [K-Dur 10] 10 meq PO DAILY 06/03/23 06/03/23 History Allergies Allergy/AdvReac Type Severity Reaction Status Date / Time Sulfa (Sulfonamide Allergy Anaphylaxis Verified 06/03/23 11:51 Antibiotics) aspirin AdvReac Chest Pain Verified 06/03/23 11:50 steroids AdvReac Unknown Uncoded 06/03/23 11:51 Physical Exam Vitals: Vital Signs Temp Pulse Resp BP Pulse Ox 06/03/23 16:09 97.9 F 63 20 164/77 99 06/03/23 13:45 62 20 159/67 99 06/03/23 12:26 97.7 F 63 20 161/77 99 06/03/23 10:24 98.1 F 70 20 155/67 98 Intake and Output 06/03/23 06/03/23 06/03/23 06:59 14:59 22:59 Other: Weight 53.977 kg Results CBC & Chem 7: 06/03/23 11:15 06/03/23 11:15 Labs: Abnormal Lab Results - Last 24 Hours (Table) 06/03/23 06/03/23 06/03/23 Range/Units 11:15 11:15 11:15 APTT 21.0 L (22.0-30.0) sec Sodium 131 L (137-145) mmol/L Chloride 97 L (98-107) mmol/L BUN 21 H (7-17) mg/dL Glucose 100 H (74-99) mg/dL Ur Leukocyte Esterase (Negative) Urine WBC (0-5) /hpf Urine Bacteria (None) /hpf Stool Occult Blood Positive H (Negative) 06/03/23 Range/Units 11:15 APTT (22.0-30.0) sec Sodium (137-145) mmol/L Chloride (98-107) mmol/L BUN (7-17) mg/dL Glucose (74-99) mg/dL Ur Leukocyte Esterase Moderate H (Negative) Urine WBC 19 H (0-5) /hpf Urine Bacteria Moderate H (None) /hpf Stool Occult Blood (Negative)
[2023-06-03 22:48] VITALS: RESP 16
[2023-06-04] MEDS: SODIUM CHLORIDE 0.9% 1,000 ML IV SCH (06:23)
[2023-06-04] MEDS ORDERED: LEVOTHYROXINE 100 MCG TAB PO SCH (06:30)
[2023-06-04 06:55] LABS: HCT 35.5 % (34.0-46.0); MCH 29.1 pg (25.0-35.0); MCHC 33.8 g/dL (31.0-37.0); MCV 86.2 fL (80.0-100.0); Mean Platelet Volume 7.9; Platelet Count 251 k/uL (150-450); RBC 4.12 m/uL (3.80-5.40); RDW 13.7 % (11.5-15.5); WBC 3.9 k/uL (3.8-10.6)
[2023-06-04 07:10] LABS: African American GFR (CKD) 76 (>60 ml/min/1.73 sqM); Anion Gap 1 mmol/L; Blood Urea Nitrogen 14 mg/dL (7-17); Calcium 8.3 mg/dL (8.4-10.2); Carbon Dioxide 28 mmol/L (22-30); Chloride 104 mmol/L (98-107); Glucose 89 mg/dL (74-99); Non-African American GFR(CKD) 66 (>60 ml/min/1.73 sqM); Potassium 4.3 mmol/L (3.5-5.1); Sodium 133 mmol/L (137-145)
[2023-06-04] MEDS ORDERED: FUROSEMIDE 40 MG TAB PO SCH (09:00)
[2023-06-04] MEDS ORDERED: LOSARTAN 50 MG TAB PO SCH (09:00)
[2023-06-04] MEDS ORDERED: ATORVASTATIN 10 MG TAB PO SCH (09:00)
[2023-06-04] MEDS ORDERED: atenoloL 50 MG TAB PO SCH (09:00)
[2023-06-04 09:13] VITALS: BP 159/69; PULSE 65; TEMP 97.2
[2023-06-04] MEDS ORDERED: PANTOPRAZOLE 40 MG TABLET PO SCH (12:00)
--- NOTE | 2023-06-04 12:13 | P.CONS ---
History of Present Illness - Reason for Consult Consult date: 06/04/23 GI bleed Requesting physician: Yara Roque - Chief Complaint Bright red blood per rectum - History of Present Illness This is a 87-year-old white female who presented to the emergency department yesterday Afternoon with complaints of bright red blood per rectum x 1 episode. She states she was having a bowel movement which was normal brown in color and then she had noted bright red blood in the toilet and some on the bathroom floor. She denies any previous history of a GI bleed. She does have a history of hemorrhoids and had a hemorrhoidectomy in the remote past. Last colonoscopy was many years ago as well but she states they were all normal. She denies any anticoagulation use, she is not on a daily aspirin. She denies any associated abdominal pain, cramping or rectal pain. She denies any nausea or vomiting. Admitting labs WBC 4.6 hemoglobin 13.3 hematocrit 84 platelet count 289,000 INR 0.9 sodium 131 potassium 4.3 BUN 21 creatinine 0.8 Review of Systems REVIEW OF SYSTEMS: CARDIOPULMONARY: No chest pain or shortness of breath. Gastrointestinal: No abdominal pain. No nausea or vomiting. No hematemesis, coffee-ground emesis. No rectal pain. Bright red blood per rectum x 1 episode. GENITOURINARY: No dysuria or hematuria. MUSCULOSKELETAL: Reports normal range of motion. SKIN: No rashes. No jaundice. ENDOCRINE: No chills, fevers. No excessive weight gain or loss. No polydipsia or polyuria. PSYCHIATRIC: Unremarkable. NEUROLOGY: No change in mental status. Denies dizziness, headache. ENT: Vision unremarkable. CONSTITUTIONAL: No recent weight loss. No fever, chills, night sweats. Past Medical History Past Medical History: Cancer, Chest Pain / Angina, GERD/Reflux, Hypertension, Osteoarthritis (OA), Thyroid Disorder Additional Past Medical History / Comment(s): Breast cancer with lumpectomy and radiation 2008, hiatel hernia History of Any Multi-Drug Resistant Organisms: None Reported Past Surgical History: Cholecystectomy, Hernia Repair, Tonsillectomy Additional Past Surgical History / Comment(s): hemorroidectomy Past Anesthesia/Blood Transfusion Reactions: No Reported Reaction Past Psychological History: Anxiety Smoking Status: Never smoker Past Alcohol Use History: None Reported Past Drug Use History: None Reported - Past Family History Mother Family Medical History: Cancer Additional Family Medical History / Comment(s): Breast cancer Father Family Medical History: Cancer Additional Family Medical History / Comment(s): Lung and throat Medications and Allergies Home Medications Medication Instructions Recorded Confirmed Type Acyclovir [Zovirax] 400 mg PO BID 10/05/17 06/03/23 History Levothyroxine Sodium [Synthroid] 100 mcg PO DAILY 10/05/17 06/03/23 History Losartan Potassium [Cozaar] 100 mg PO DAILY 10/05/17 06/03/23 History Omeprazole 40 mg PO DAILY@1200 10/05/17 06/03/23 History atenoloL [Tenormin] 50 mg PO DAILY 10/05/17 06/03/23 History Lovastatin [Mevacor] 10 mg PO Q48H 11/08/20 06/03/23 History Furosemide [Lasix] 40 mg PO DAILY 06/03/23 06/03/23 History Potassium Chloride ER [K-Dur 10] 10 meq PO DAILY 06/03/23 06/03/23 History Allergies Allergy/AdvReac Type Severity Reaction Status Date / Time Sulfa (Sulfonamide Allergy Anaphylaxis Verified 06/03/23 11:51 Antibiotics) aspirin AdvReac Chest Pain Verified 06/03/23 11:50 steroids AdvReac Unknown Uncoded 06/03/23 11:51 Physical Exam Vitals: Vital Signs Temp Pulse Pulse Resp BP BP Pulse Ox 06/04/23 02:00 97.3 F L 61 16 125/61 98 06/03/23 22:44 98.0 F 80 16 162/74 93 L 06/03/23 22:30 16 06/03/23 20:00 65 18 153/71 96 06/03/23 18:24 97.3 F L 63 20 148/71 100 06/03/23 16:09 97.9 F 63 20 164/77 99 06/03/23 13:45 62 20 159/67 99 06/03/23 12:26 97.7 F 63 20 161/77 99 06/03/23 10:24 98.1 F 70 20 155/67 98 Intake and Output 06/03/23 06/03/23 06/04/23 14:59 22:59 06:59 Intake Total 0 Balance 0 Intake: Oral 0 Other: Voiding Method Toilet # Voids 1 Weight 53.977 kg General appearance: The patient is alert, oriented, appears in no acute distress. HET: Head is normocephalic and atraumatic. Conjunctiva pink. Sclera anicteric. Neck: Supple without lymphadenopathy. Trachea midline. Heart: Regular. Lungs: Equal expansion, normal respiratory effort. Abdomen: Soft, nontender, nondistended with bowel sounds. No guarding or rigidity. Skin: No rashes. No jaundice. Extremities: Normal skin color and turgor. No pedal edema. Neurological: No focal deficits. Alert and oriented x3. Results CBC & Chem 7: 06/04/23 06:29 06/04/23 06:29 Labs: Abnormal Lab Results - Last 24 Hours (Table) 06/03/23 06/03/23 06/03/23 Range/Units 11:15 11:15 11:15 APTT 21.0 L (22.0-30.0) sec Sodium 131 L (137-145) mmol/L Chloride 97 L (98-107) mmol/L BUN 21 H (7-17) mg/dL Glucose 100 H (74-99) mg/dL Ur Leukocyte Esterase (Negative) Urine WBC (0-5) /hpf Urine Bacteria (None) /hpf Stool Occult Blood Positive H (Negative) 06/03/23 Range/Units 11:15 APTT (22.0-30.0) sec Sodium (137-145) mmol/L Chloride (98-107) mmol/L BUN (7-17) mg/dL Glucose (74-99) mg/dL Ur Leukocyte Esterase Moderate H (Negative) Urine WBC 19 H (0-5) /hpf Urine Bacteria Moderate H (None) /hpf Stool Occult Blood (Negative) Assessment and Plan (1) Bright red blood per rectum Narrative/Plan: 87-year-old female who presented to the emergency department because she was nervous about having some bright red blood per rectum. She had 1 episode yeste rday following a bowel movement which she states her stool was not mixed with blood. Previous history of hemorrhoids with hemorrhoidectomy in the remote past. Not on any anticoagulation and it was isolated incidence. No pain in rectum or abdomen. Likely hemorrhoidal bleed. Discussed with patient and family member that if she has further bleeding she can follow-up for outpatient colonoscopy. Patient cleared for discharge. Continue with MiraLAX daily. Current Visit: Yes Status: Acute Code(s): K62.5 - HEMORRHAGE OF ANUS AND RECTUM SNOMED Code(s): 25079324 Plan: 1. Continue symptomatic and supportive care 2. Patient may have heart healthy diet 3. No plans on endoscopic evaluation 4. Patient can follow-up as an outpatient if she has any further bleeding can discuss outpatient colonoscopy at that time. Patient agreeable with this plan. Thank you for this consultation, patient is cleared from gastroenterology for discharge. We will sign off at this time Dr. Jose Cook I agree with the dictator's note, documented as a scribe by Lorena Starks.
--- NOTE | 2023-06-04 12:17 | P.DS ---
Providers Date of admission: 06/03/23 14:10 Expected date of discharge: 06/04/23 Attending physician: Nader Chambers MD Consults: 06/03/23 13:34 Consult Physician Stat Consulting Provider: Magda Cook Consult Reason/Comments: GI bleed Do you want consulting provider notified?: Yes Primary care physician: [facility] Course: 87-year-old female with past medical history of HTN, hypothyroidism, dyslipidemia, GERD. Patient presents to the ED for 1 episode of BRBPR that happened this morning. No bowel movement since. No abdominal pain, nausea or vomiting. Reports h/o C-scope > 10 years ago. She does report intermittent chest pain, described as indigestion, ongoing for the past 2 weeks, none currently. She does report lightheadedness when changing position also ongoing for the past 2 weeks. In the ED, patient underwent extensive evaluation: Elevated BP of 164/77. CBC unremarkable. Coag panel within normal limits. CMP Na 131, Cl 97, BUN 21, glu 100. Troponin < 0.012. Mag 1.9. Amylase 51. Lipase 162. UDS moderate LE. Stool occult blood positive. Flu, RSV, COVID negative. EKG normal sinus rhythm. CXR no acute pathology. Patient is admitted for further workup. GI was consulted and recommended no further workup. She did have a regular bowel movement during this hospital visit. Her repeat Hg was 12 but likely dilutional. Patient to be discharged home today with follow up with Dr. Cook on 06/29. I did advised her she may benefit from a stress test which she can follow up with her PCP for. 06/04 Patient was seen and examined. No complaints. Wanting to go home. BMP Na 133, Ca 8.3. General: Non toxic, no distress, appears at stated age Derm: Warm, dry Head: Atraumatic, normocephalic, symmetric Eyes: EOMI, no lid lag, anicteric sclera Mouth: No lip lesion, mucus membranes moist Cardiovascular: S1S2 reg, no murmur Lungs: CTA bilateral, no rhonchi, no rales, no accessory muscle use Abdominal: Soft, nontender to palpation, no guarding, no appreciable organomegaly Ext: No gross muscle atrophy, no edema, no contractures Neuro: no focal neuro deficits Psych: Alert, oriented, appropriate affect Discharge Diagnosis: BRBPR Hyponatremia Abnormal UA Chronic conditions: HTN, hypothyroidism, dyslipidemia, GERD This complex discharge took 35 minutes to complete. Patient Condition at Discharge: Stable Plan - Discharge Summary New Discharge Prescriptions: Continue Losartan Potassium [Cozaar] 100 mg PO DAILY Levothyroxine Sodium [Synthroid] 100 mcg PO DAILY atenoloL [Tenormin] 50 mg PO DAILY Acyclovir [Zovirax] 400 mg PO BID Omeprazole 40 mg PO DAILY@1200 Lovastatin [Mevacor] 10 mg PO Q48H Potassium Chloride ER [K-Dur 10] 10 meq PO DAILY Furosemide [Lasix] 40 mg PO DAILY Discharge Medication List Acyclovir [Zovirax] 400 mg PO BID 10/05/17 [History] Levothyroxine Sodium [Synthroid] 100 mcg PO DAILY 10/05/17 [History] Losartan Potassium [Cozaar] 100 mg PO DAILY 10/05/17 [History] Omeprazole 40 mg PO DAILY@1200 10/05/17 [History] atenoloL [Tenormin] 50 mg PO DAILY 10/05/17 [History] Lovastatin [Mevacor] 10 mg PO Q48H 11/08/20 [History] Furosemide [Lasix] 40 mg PO DAILY 06/03/23 [History] Potassium Chloride ER [K-Dur 10] 10 meq PO DAILY 06/03/23 [History] Follow up Appointment(s)/Referral(s): Jose F Navarro MD [Primary Care Provider] - 06/08/23 1:00 pm (appointment with Irma CURIEL) Magda Cook MD [STAFF PHYSICIAN] - 06/29/23 8:30 am (appointment Minna CURIEL) Patient Instructions/Handouts: Gastrointestinal Bleeding (DC) Discharge Disposition: HOME SELF-CARE
== END 2023-06-04 11:42 | disposition home or self-care (01) ==
LOC: EC 10:15 → 4SSUR 14:10 → 5NMEDONC 17:38
PROVIDERS: ADMIT Student in an Organized Health Care Education/Training Program; ATTEND Student in an Organized Health Care Education/Training Program
DX: K62.5 Hemorrhage of anus and rectum (principal); K21.9 Gastro-esophageal reflux disease without esophagitis; E87.1 Hypo-osmolality and hyponatremia; R82.90 Unspecified abnormal findings in urine; I10 Essential (primary) hypertension; F41.9 Anxiety disorder, unspecified; E03.9 Hypothyroidism, unspecified; E78.5 Hyperlipidemia, unspecified; Z20.822 Contact with and (suspected) exposure to COVID-19; Z85.3 Personal history of malignant neoplasm of breast; Z92.3 Personal history of irradiation; Z90.49 Acquired absence of other specified parts of digestive tract; Z79.890 Hormone replacement therapy; Z79.899 Other long term (current) drug therapy; Z88.2 Allergy status to sulfonamides; Z88.6 Allergy status to analgesic agent
CPT/HCPCS: 99285; 36415; 93005; 86900; 86901; 80053; 80048; 82150; 83690; 83735; 84484; 85025; 85027; 85610; 85730; 86850; 82272; 81001; 87086; 87077; 87186; 87636; 71046; G0378 ×3